=== PATIENT | female | born 1980 | race Caucasian/White ===

== ENCOUNTER 2018-03-30 15:14 | Emergency (ER) | payer SELFPAY ==
[2018-03-30] MEDS ORDERED: HYDROMORPHONE HCL 1 MG/ML INJ ONE (15:35)
[2018-03-30] MEDS ORDERED: NA CHLORIDE 0.9% 1,000 ML ONE (15:35)
[2018-03-30 16:18] LABS: Absolute Lymphocytes (CBC) 1.8 K/uL (0.7-4.9); Absolute Monocytes 0.8 K/uL (0.1-1.3); Absolute Neutrophil 10.2 K/uL (1.8-8.0); Basophils % 0.9 % (0-1.3); Eosinophils % 1.2 % (0-4.4); Hematocrit 37.4 % (36.0-45.0); Lymphocytes % 13.4 % (15.3-44.8); MCH 30.4 pg (27.0-35.0); MCV 90.7 fL (80-100); MPV 8.9 fL (7.6-11.3); Monocytes % 6.2 % (3.3-12.3); RBC Red Blood Cell Count 4.13 M/uL (3.86-4.86)
[2018-03-30 16:27] LABS: ALT/SGPT 45 U/L (12-78); AST/SGOT 53 U/L (15-37); Albumin 3.5 g/dL (3.4-5.0); Alkaline Phosphatase 436 U/L (45-117); BUN Blood Urea Nitrogen 11 mg/dL (7-18); Bicarbonate 26 mmol/L (21-32); Bilirubin Direct 0.8 mg/dL (0-0.2); Bilirubin Total 1.2 mg/dL (0.2-1.0); Glucose Level 111 mg/dL (74-106); Potassium 3.9 mmol/L (3.5-5.1); Protein, Total 8.3 g/dL (6.4-8.2); Sodium Level 141 mmol/L (136-145)
[2018-03-30] MEDS ORDERED: HYDROMORPHONE HCL 0.5 MG/0.5 ML INJ ONE ×2 (16:48→18:52)
--- NOTE | 2018-03-30 16:53 | RAD REPORT ---
EXAM DESCRIPTION: CT - Abdomen Pelvis W Contrast - 03/30/2018 4:29 pm CLINICAL HISTORY: Abdominal pain upper abdominal pain COMPARISON: February 2018 MRCP TECHNIQUE: Computed axial tomography of the abdomen pelvis was obtained. 100 cc Isovue-300 was admin istered intravenously. Oral contrast was not requested which limits evaluation of bowel. All CT scans are performed using dose optimization technique as appropriate and may include automated exposure control or mA/KV adjustment according to patient size. FINDINGS: A biliary stent has been placed. The caliber of the biliary tree has significantly diminis hed. Contrast is present within the gallbladder. Spleen, adrenals and kidneys appear unremarkable Mild to moderate peripancreatic stranding is seen. A pseudocyst is not visualized There is no evidence of diverticulitis. The appendix appears normal A tiny umbilical hernia is present IMPRESSION: Mild to moderate pancreatitis
[2018-03-30 17:10] LABS: Lipase > 30000 U/L (73-393)
[2018-03-30 17:11] LABS: Amylase Level > 1302 U/L (25-115)
--- NOTE | 2018-03-30 18:04 | ER ---
Nurse's Notes [facility] Name: Leni Foss Age: 37 yrs Sex: Female : 1980 Arrival Date: 03/30/2018 Time: 15:15 Bed 19 Private MD: Ayla Steen H Diagnosis: Acute pancreatitis, unspecified-s/p ERCP with biliary stent Presentation: 03/30 15:30 Presenting complaint: Patient states: has had severe upper abd pain that started today iw after ERPC by Dr. Garcia with biliary stent placement, pain is described as stabbing, 04/25. Transition of care: patient was not received from another setting of care. Onset of symptoms was March 30, 2018. Risk Assessment: Do you want to hurt yourself or someone else? Patient reports no desire to harm self or others. Initial Sepsis Screen: Does the patient meet any 2 criteria? No. Patient's initial sepsis screen is negative. Does the patient have a suspected source of infection? No. Patient's initial sepsis screen is negative. Care prior to arrival: None. 15:30 Method Of Arrival: Wheelchair iw 15:30 Acuity: ANABELL 3 iw Historical: - Allergies: 15:44 PENICILLINS; iw - PMHx: 18:37 Hyperlipidemia; em - PSHx: 18:37 gallbladder stents; Tubal ligation; em - Immunization history:: Adult Immunizations up to date. - Ebola Screening: : Patient negative for fever greater than or equal to 101.5 degrees Fahrenheit, and additional compatible Ebola Virus Disease symptoms Patient denies exposure to infectious person Patient denies travel to an Ebola-affected area in the 21 days before illness onset No symptoms or risks identified at this time. - Social history:: Smoking status: Patient/guardian denies using tobacco. Screenin:45 Abuse screen: Denies threats or abuse. Denies injuries from another. Nutritional iw screening: No deficits noted. Tuberculosis screening: No symptoms or risk factors identified. Fall Risk None identified. Assessment: 15:45 General: Appears uncomfortable, Behavior is cooperative, crying. Pain: Complains of em pain in epigastric area Pain currently is 10 out of 10 on a pain scale. Neuro: Level of Consciousness is awake, alert, obeys commands, Oriented to person, place, time, situation. Cardiovascular: Patient's skin is warm and dry. Respiratory: Airway is patent Respiratory effort is even, unlabored, Respiratory pattern is regular, symmetrical. GI: Abdomen is round non-distended, Bowel sounds present X 4 quads. Abd is soft X 4 quads Abdomen is tender to palpation in right upper quadrant and left upper quadrant Patient currently denies nausea, vomiting. : No signs and/or symptoms were reported regarding the genitourinary system. EENT: No signs and/or symptoms were reported regarding the EENT system. Derm: Skin is intact, Skin is pink, warm \T\ dry. Musculoskeletal: Range of motion: intact in all extremities. 16:27 Reassessment: I agree with above assessment by Jorge Luis Monae LVN. iw 16:45 Reassessment: Patient appears in no apparent distress at this time. Patient and/or em family updated on plan of care and expected duration. Pain level reassessed. Patient is alert, oriented x 3, equal unlabored respirations, skin warm/dry/pink. 18:02 Reassessment: Patient appears in no apparent distress at this time. Patient and/or em family updated on plan of care and expected duration. Pain level reassessed. Patient is alert, oriented x 3, equal unlabored respirations, skin warm/dry/pink. rates pain 4/10 Patient states feeling better. 18:30 Reassessment: pt in pain and vomiting, provider notified, new medications received. em 18:40 Reassessment: Patient appears in no apparent distress at this time. report called to chago Frazier RN at [facility]. 19:24 Reassessment: Patient appears in no apparent distress at this time. Patient and/or em family updated on plan of care and expected duration. Pain level reassessed. Patient is alert, oriented x 3, equal unlabored respirations, skin warm/dry/pink. report given to EMS. Vital Signs: 15:36 BP 101 / 59; Pulse 63; Resp 16; Temp 98.7(O); Pulse Ox 100% on R/A; dh3 16:50 BP 142 / 73; Pulse 81; Resp 16; Pulse Ox 95% on R/A; Pain 10/10; em 17:28 BP 121 / 67; Pulse 72; Resp 16; Pulse Ox 95% on R/A; dh3 18:29 BP 123 / 67; Pulse 92; Resp 16; Temp 98.0; Pulse Ox 97% on R/A; Pain 4/10; em 19:23 BP 134 / 80; Pulse 74; Resp 18; Pulse Ox 99% on R/A; Pain 4/10; em ED Course: 15:15 Patient arrived in ED. mr 15:15 Ayla Steen DO is Private Physician. mr 15:21 Chika Prajapati FNP-C [facility]. snw 15:21 Marcial Love MD is Attending Physician. snw 15:26 Jorge Luis Monae LVN is Primary Nurse. em 15:27 Missed attempt(s): 20 gauge in left forearm. Bleeding controlled, band aid applied, iw catheter tip intact. 15:30 Inserted saline lock: 20 gauge in left antecubital area, using aseptic technique. Blood iw collected. 15:43 Triage completed. iw 15:45 No provider procedures requiring assistance completed. iw 15:45 Patient has correct armband on for positive identification. Bed in low position. Call iw light in reach. Adult w/ patient. 16:29 CT Abd/Pelvis - W/Contrast In Process Unspecified. EDMS 19:00 Inserted saline lock: 20 gauge in right antecubital area, using aseptic technique. em 19:00 IV discontinued, intact, bleeding controlled, No redness/swelling at site. Pressure em dressing applied, pt IV infiltrated. 19:18 Arm band placed on. em 19:19 Patient transferred, IV remains in place. em Administered Medications: 15:46 Drug: NS 0.9% 1000 ml Route: IV; Rate: 125 ml/hr; Site: left antecubital; iw 19:22 Follow up: IV Status: Infusion continued upon transfer; IV Intake: 300ml em 15:46 Drug: Dilaudid 1 mg Route: IVP; Site: left antecubital; iw 16:00 Follow up: Response: No adverse reaction; Pain is decreased em 16:49 Drug: Dilaudid 0.5 mg Route: IVP; Site: left antecubital; em 17:10 Follow up: Response: No adverse reaction; Pain is decreased em 19:11 Drug: Dilaudid 0.5 mg Route: IVP; Site: right antecubital; em 19:22 Follow up: Response: No adverse reaction; Pain is decreased em 19:12 Drug: Phenergan 12.5 mg Route: IVP; Site: right antecubital; iw 19:22 Follow up: Response: No adverse reaction; Nausea is decreased em Intake: 19:22 IV: 300ml; Total: 300ml. em Outcome: 18:03 ER care complete, transfer ordered by MD. fernández 19:19 Transferred by ground EMS to [facility], [facility], Transfer form completed. em X-rays sent w/ patient. 19:19 Condition: good 19:19 Instructed on the need for transfer, Demonstrated understanding of instructions. 19:24 Patient left the ED. em Signatures: Dispatcher [employer] EDMS Chika Prajapati, PRINCIPAL LIBRARIAN-C PRINCIPAL LIBRARIAN-Pearl Townsendoz, Jorge Luis, CARBON GRINDER CARBON GRINDER em Deisy Moscoso, JANNETTE RN Lora Qiu 3 Corrections: (The following items were deleted from the chart) 19:22 18:30 Reassessment: pt in pain and vomiting, provider notified em em
--- NOTE | 2018-03-30 18:04 | EDPHYS ---
Physician Documentation [facility] Name: Leni Foss Age: 37 yrs Sex: Female : 1980 Arrival Date: 03/30/2018 Time: 15:15 Bed 19 Private MD: Ayla Steen H ED Physician Marcial Love HPI: 03/30 15:51 This 37 yrs old Female presents to ER via Wheelchair with complaints of snw Abdominal Pain. 15:51 The patient presents with abdominal pain in the epigastric area. Onset: The snw symptoms/episode began/occurred suddenly, today. The symptoms radiate to back. Associated signs and symptoms: Pertinent positives: nausea and vomiting. The symptoms are described as shooting, stabbing. Severity of pain: At its worst the pain was severe incapacitating in the emergency department the pain is unchanged. The patient has experienced a previous episode, but today's symptoms are worse. The patient has been recently seen by a physician: Dr. Garcia earlier today, pt had Common bile duct stent today per Dr. Garcia.. Historical: - Allergies: 15:44 PENICILLINS; iw - PMHx: 18:37 Hyperlipidemia; em - PSHx: 18:37 gallbladder stents; Tubal ligation; em - Immunization history:: Adult Immunizations up to date. - Ebola Screening: : Patient negative for fever greater than or equal to 101.5 degrees Fahrenheit, and additional compatible Ebola Virus Disease symptoms Patient denies exposure to infectious person Patient denies travel to an Ebola-affected area in the 21 days before illness onset No symptoms or risks identified at this time. - Social history:: Smoking status: Patient/guardian denies using tobacco. ROS: 15:50 Eyes: Negative for injury, pain, redness, and discharge, ENT: Negative for injury, snw pain, and discharge, Neck: Negative for injury, pain, and swelling, Cardiovascular: Negative for chest pain, palpitations, and edema, Respiratory: Negative for shortness of breath, cough, wheezing, and pleuritic chest pain, Back: Negative for injury and pain, : Negative for injury, bleeding, discharge, and swelling, MS/Extremity: Negative for injury and deformity, Skin: Negative for injury, rash, and discoloration, Neuro: Negative for headache, weakness, numbness, tingling, and seizure. 15:50 Constitutional: Positive for poor PO intake. 15:50 Abdomen/GI: Positive for abdominal pain, nausea and vomiting, abdominal cramps. Exam: 15:47 Head/Face: Normocephalic, atraumatic. Eyes: Pupils equal round and reactive to light, snw extra-ocular motions intact. Lids and lashes normal. Conjunctiva and sclera are non-icteric and not injected. Cornea within normal limits. Periorbital areas with no swelling, redness, or edema. ENT: Nares patent. No nasal discharge, no septal abnormalities noted. Tympanic membranes are normal and external auditory canals are clear. Oropharynx with no redness, swelling, or masses, exudates, or evidence of obstruction, uvula midline. Mucous membranes moist. Neck: Trachea midline, no thyromegaly or masses palpated, and no cervical lymphadenopathy. Supple, full range of motion without nuchal rigidity, or vertebral point tenderness. No Meningismus. Chest/axilla: Normal chest wall appearance and motion. Nontender with no deformity. No lesions are appreciated. 15:47 Respiratory: Lungs have equal breath sounds bilaterally, clear to auscultation and percussion. No rales, rhonchi or wheezes noted. No increased work of breathing, no retractions or nasal flaring. Back: No spinal tenderness. No costovertebral tenderness. Full range of motion. Skin: Warm, dry with normal turgor. Normal color with no rashes, no lesions, and no evidence of cellulitis. MS/ Extremity: Pulses equal, no cyanosis. Neurovascular intact. Full, normal range of motion. Neuro: Awake and alert, GCS 15, oriented to person, place, time, and situation. Cranial nerves II-XII grossly intact. Motor strength 5/5 in all extremities. Sensory grossly intact. Cerebellar exam normal. Normal gait. Psych: Awake, alert, with orientation to person, place and time. Behavior, mood, and affect are within normal limits. 15:47 Constitutional: The patient appears alert, anxious, obese, in obvious pain, restless. 15:47 Cardiovascular: Rate: tachycardic. 15:47 Abdomen/GI: Inspection: obese Palpation: moderate abdominal tenderness, in the epigastric area. Vital Signs: 15:36 BP 101 / 59; Pulse 63; Resp 16; Temp 98.7(O); Pulse Ox 100% on R/A; dh3 16:50 BP 142 / 73; Pulse 81; Resp 16; Pulse Ox 95% on R/A; Pain 10/10; em 17:28 BP 121 / 67; Pulse 72; Resp 16; Pulse Ox 95% on R/A; dh3 18:29 BP 123 / 67; Pulse 92; Resp 16; Temp 98.0; Pulse Ox 97% on R/A; Pain 4/10; em 19:23 BP 134 / 80; Pulse 74; Resp 18; Pulse Ox 99% on R/A; Pain 4/10; em MDM: 15:22 Patient medically screened. snw 18:04 Data reviewed: vital signs, nurses notes. Data interpreted: Pulse oximetry: on room air snw is 95 %. Interpretation: normal. Counseling: I had a detailed discussion with the patient and/or guardian regarding: the historical points, exam findings, and any diagnostic results supporting the discharge/admit diagnosis, lab results, radiology results, the need to transfer to another facility, for higher level of care, [facility] does not immediately have the required specialist. 03/30 15:27 Order name: Amylase, Serum; Complete Time: 17:14 snw 03/30 15:27 Order name: Basic Metabolic Panel; Complete Time: 17:14 snw 03/30 15:27 Order name: CBC with Diff; Complete Time: 16:20 snw 03/30 15:27 Order name: Creatinine for Radiology; Complete Time: 16:53 snw 03/30 15:27 Order name: Hepatic Function; Complete Time: 17:14 snw 03/30 15:27 Order name: Lipase; Complete Time: 17:14 snw 03/30 15:27 Order name: IV Saline Lock; Complete Time: 15:45 snw 03/30 15:27 Order name: CT Abd/Pelvis - W/Contrast; Complete Time: 16:54 snw 03/30 15:27 Order name: Labs collected and sent; Complete Time: 15:45 snw 03/30 15:27 Order name: NPO; Complete Time: 15:44 snw Administered Medications: 15:46 Drug: NS 0.9% 1000 ml Route: IV; Rate: 125 ml/hr; Site: left antecubital; iw 19:22 Follow up: IV Status: Infusion continued upon transfer; IV Intake: 300ml em 15:46 Drug: Dilaudid 1 mg Route: IVP; Site: left antecubital; iw 16:00 Follow up: Response: No adverse reaction; Pain is decreased em 16:49 Drug: Dilaudid 0.5 mg Route: IVP; Site: left antecubital; em 17:10 Follow up: Response: No adverse reaction; Pain is decreased em 19:11 Drug: Dilaudid 0.5 mg Route: IVP; Site: right antecubital; em 19:22 Follow up: Response: No adverse reaction; Pain is decreased em 19:12 Drug: Phenergan 12.5 mg Route: IVP; Site: right antecubital; iw 19:22 Follow up: Response: No adverse reaction; Nausea is decreased em Disposition: 03/30/18 18:03 Transfer ordered to [facility]. Diagnosis is Acute pancreatitis, unspecified - s/p ERCP with biliary stent. - Reason for transfer: Higher level of care. - Accepting physician is GI and Hospitalist for [facility]. - Condition is Stable. - Problem is new. - Symptoms are unchanged. Addendum: 04/02/2018 07:21 Co-signature as Attending Physician, Marcial Love MD I agree with the assessment and c rose plan of care. Signatures: Dispatcher [employer] Marcial Cummings MD MD cha Therrien, Shelly, LOGISTICS ACCOUNT MANAGER-C LOGISTICS ACCOUNT MANAGER-Csnw Jorge Luis Monae, FORMULA CHECKER FORMULA CHECKER em Deisy Moscoso, JANNETTE RN iw Corrections: (The following items were deleted from the chart) 03/30 19:24 18:03 03/30/2018 18:03 Transfer ordered to [facility]. Diagnosis is em Acute pancreatitis, unspecified - s/p ERCP with biliary stent. Reason for transfer: Higher level of care. Accepting physician is GI and Hospitalist for [facility]. Condition is Stable. Problem is new. Symptoms are unchanged. snw
[2018-03-30] MEDS ORDERED: PROMETHAZINE 25 MG/ML VIAL ONE (19:03)
== END 2018-03-30 19:24 | disposition short-term general hospital (02) ==
LOC: ER 15:14
DX: K85.90 Acute pancreatitis without necrosis or infection, unspecified (principal); Z98.890 Other specified postprocedural states; Z88.0 Allergy status to penicillin
CPT/HCPCS: 36415; 74177; 80048; 80076; 82150; 83690; 85025; 99285; J1170; J2550; J7030; Q9967

== ENCOUNTER 2022-07-09 13:17 | Emergency (ER) | payer OTHER ==
--- OUTSIDE RECORDS SUMMARY | 2022-07-09 13:39 | XMS REPORT | Continuity of Care Document ---
:[address] [facility] t Address [address] [place] [address] Care Team Providers Name Role Phone RONA JONES Primary Care Physician Unavailable ANKUSH CORTES Attending Clinician Unavailable Sharmila TREJO, Aaron Rogers Attending Clinician Ed Rashid MA Attending Clinician Unavailable Mounika BHATIA, Madie Price Attending Clinician Unavailable AARON DOLL Attending Clinician Unavailable Romel Alvarado MA Attending Clinician Unavailable Only, Adc Test Attending Clinician Unavailable Ryan Francois MD Attending Clinician RYAN FRANCOIS Attending Clinician Unavailable Doctor Unassigned, [place] [employer] Attending Clinician Unavailable LENNY LAZARO Attending Clinician Unavailable Cyndi Hutson MD Attending Clinician DINO SAVAGE Attending Clinician Unavailable ANKUSH CORTES Admitting Clinician Unavailable DINO SAVAGE Admitting Clinician Unavailable Payers Payer Name Policy Type Policy Number Effective Date Expiration Date S [id number] 2019 2019 00:00:00 SELECT CHOICE 00:00:00 BCBS PPO POS [id number] 2019 EPO CHOICE 00:00:00 Problems Condition Condition Condition Status Onset Resolution Last Treating Co mments Source Name Details Category Date Date Treatment Clinician Date Immunity Immunity Disease Active [facility] PSC PSC Disease Active [facility] (primary (primary [facility] sclerosing sclerosing 00:00: Me dical cholangiti cholangiti 00 Ce nter s) s) Hypokalemi Hypokalemi Disease Active [facility]01 [facility] Severe Severe Disease Active [facility] obesity obesity 04-01 [facility] with body with body 00:00: Medi stacy mass index mass index 00 Ce nter (BMI) of (BMI) of 35.0 to 35.0 to 39.9 with 39.9 with serious serious comorbidit comorbidit y y Pancreatit Pancreatit Disease Active [facility] is, acute is, acute 03-30 [facility] 00:00: Medical 00 Center Allergies, Adverse Reactions, Alerts Allergy Allergy Status Severity Reaction(s) Onset Inactive Treating Comm ents Source Name Type Date Date Clinician Penicill Drug Active Hives [facility] Allergy 03-30 [facility] 00:00: Medical 00 [place] Penicill Propensi Active Hives [facility] ins ty to 03-30 College adverse 00:00: of reaction 00 Medicin s to e drug PENICILL Allergy Active Med Hives [facility] INS 03-30 00:00: 00 Penicill Drug Active Hives [facility] Allergy 03-30 [facility] 00[facility]00: Medical 00 [place] NO KNOWN Drug Active Univers ALLERGIE Class ity of [facility] Social History Social Habit Start Date Stop Date Quantity Comments Source Exposure to Not sure [facility] SARS-CoV-2 [facility] (event[facility] Alcohol intake 2020-05-21 2020-05-21 Ex-drinker [facility] Tobacco use and 2018-03-30 2018-03-[address] [facility] exposure 00:00:00 00:00:00 Medical [place] Sex Assigned At [address] [address] [facility] 00:00:00 00:00:00 Medical Center Smoking Status Start Date Stop Date Source Unknown if ever smoked [facility] [place] Never smoker [facility] o f Medicine Medications Ordered Filled Start Stop Current Ordering Indication Dosage Frequency Signature Comments Components Source Medication Medication Date Date Medication? Clinician (SIG) Name Name hydrOXYzine Yes Cancer 50mg Take [address] (ATARAX) 50 2-19 screening tablet (50 [facility] MG tablet 00:00: mg total) Med ical 00 by mouth Center every 8 (eight) hours as needed for Itching. hydrOXYzine Yes Cancer 50mg Take [address] (ATARAX) 50 2-19 screening tablet (50 [facility] MG tablet 00:00: mg total) Med ical 00 by mouth Center every 8 (eight) hours as needed for Itching. hydrOXYzine Yes Cancer 50mg Take [address] (ATARAX) 50 2-19 screening tablet (50 [facility] MG tablet 00:00: mg total) Med ical 00 by mouth Center every 8 (eight) hours as needed for Itching. hydrOXYzine 2020- No Cancer 50mg Q.5D Take [address] (ATARAX) 25 -03 18- screening tablets [facility] tablet 00:00: 00:00 (50 mg Medic al 00 :00 total) by Center mouth 2 (two) times daily. hydrOXYzine 2020- No Cancer 50mg Q.5D Take [address] (ATARAX) 25 -03 18-19 screening tablets [facility] MG tablet 00:00: 00:00 (50 mg Medic al 00 :00 total) by Center mouth 2 (two) times daily. sertraline 2019-07- No Itching TAKE [address] (ZOLOFT) 50 02-18 TABLET(50 [facility] MG tablet 00:00: 00:00 MG) BY Medic al 00 :00 MOUTH Center DAILY sertraline 2019-07- No Itching TAKE [address] (ZOLOFT) 50 2-29 02-18 TABLET(50 [facility]ia kes MG tablet 00:00: 00:00 MG) BY Medic al 00 :00 MOUTH Center DAILY doxepin Yes [id number] 20mg Take 2 Will kaushik (SINEQUAN) 5-07 Caps by Colleg e 10 MG 00:00: mouth of capsule 00 nightly. Medicin Take 1cab e qhs x 1-2wks. Go up to 2cabs qhs as tolerated Ursodiol Yes TK 1 T PO Bayl or 500 MG TABS 4-07 BID College 00:00: of 00 Medicin e hydrOXYzine Yes TK 1 T PO B aylor (ATARAX) 50 2-21 TID College MG tablet 00:00: of 00 Medicin e Vital Signs Vital Name Observation Time Observation Value Comments Source HEIGHT 2020-05-20 10:15:00 157.5 cm WEIGHT 2020-05-20 10:15:00 84.823 kg HEIGHT 2020-05-19 12:08:00 157.5 cm WEIGHT 2020-05-19 12:08:00 86.183 kg HEIGHT 2020-05-20 10:15:00 157.5 cm WEIGHT 2020-05-20 10:15:00 84.823 kg HEIGHT 2020-05-19 12:08:00 157.5 cm WEIGHT 2020-05-19 12:08:00 86.183 kg HEIGHT 2019-12-10 00:00:00 157.5 cm WEIGHT 2019-12-10 00:00:00 92.987 kg Body height 2019-11-21 17:13:00 157.5 cm [facility] Body weight 2019-11-21 17:13:00 [facility]719 [facility] BMI 2019-11-21 17:13:00 36.58 kg/m2 [facility] Body height 2019-11-21 17:13:00 157.5 cm [facility] Body weight 2019-11-21 17:13:00 90.719 kg [facility] BMI 2019-11-21 17:13:00 36.58 kg/m2 [facility] Procedures Procedure Date / Time Performing Clinician Source Performed BASIC METABOLIC PANEL 2020-11-11 13:29:00 Aaron Doll [facility] () Center HEPATIC FUNCTION PANEL 2020-11-11 13:29:00 Aaron Doll [facility] CBC W/PLT COUNT & AUTO 2020-11-11 13:29:00 [facility] PROTHROMBIN TIME/INR 2020-11-11 13:29:[address] [facility] Center ASSIGNMENT OF BENEFITS 2020-05-14 20:18:46 Doctor Unassigned, [facility] Plan of Care Planned Activity Planned Date Details Comments Source Future Scheduled 2022-03-[address] [facility] Test 00:00:00 (#1) [code = [facility] Center INFLUENZA VACCINE (#1)] Future Scheduled 2021-07-[address] [facility] Test 00:00:00 (12+) [code = [facility] Center DEPRESSION SCREENING (12+)] Future Scheduled 2021-05-[address] [facility] Scre[facility] (12+) [code = Tobacco Cessation Counseling and Screening (12+)] Future Scheduled 2021-03-[address] [facility] Test 00:00:00 (#1) [code = [facility] INFLUENZA VACCINE (#1)] Future Scheduled 2021-03-[address] [facility] Test 00:00:00 (#1) [code = [facility] INFLUENZA VACCINE (#1)] Future Scheduled 2020-07-[address] [facility] Test 00:00:00 (12+) [code = [facility] Center DEPRESSION SCREENING (12+)] Future Scheduled 2020-07-[address] [facility] Test 00:00:00 (12+) [code = [facility] DEPRESSION SCREENING (12+)] Future Scheduled [address] Test 00:00:00 malignant neoplasm Medical C enter of cervix (procedure) [code = 465334590] Future Scheduled [address] [facility] Test 00:00:00 malignant neoplasm Medical C enter of cervix (procedure) [code = 566977489] Future Scheduled [address] [facility] Test 00:00:00 malignant neoplasm Medical C enter of cervix (procedure) [code = 707946475] Future Scheduled [address] [facility] Test 00:00:00 (procedure) [code = [facility] [id number]] Future Scheduled [address] Test 00:00:00 (procedure) [code = [facility] [id number]] Future Scheduled [address] [facility] Test 00:00:00 (procedure) [code = [facility] Center [id number]] Future Scheduled 1999 DTAP/TDAP/TD [facility] 00:[facility]:00 VACCINES (1 - Tdap) Medical Center [code = DTAP/TDAP/TD VACCINES (1 - Tdap)] Future Scheduled 1999 DTAP/TDAP/TD [facility] Test 00:[facility]:00 VACCINES (1 - Tdap) Medical Center [code = DTAP/TDAP/TD VACCINES (1 - Tdap)] Future Scheduled 1999 DTAP/TDAP/TD [facility] Test 00:00:00 VACCINES (1 - Tdap) [facility] Center [code = DTAP/TDAP/TD VACCINES (1 - Tdap)] Future Scheduled 1992 COVID-19 VACCINE (1) [facility] Test 00:00:00 [code = COVID-[address] VACCINE (1)] Future Scheduled 1992 COVID-19 VACCINE (1) [facility] Test 00:00:00 [code = COVID-[address] VACCINE (1)] Future Scheduled 1980 COVID-[address] [facility] Test 00:00:00 (#1) [code = Medical Center COVID-19 VACCINE (#1)] Future Scheduled TETANUS SHOT (ADULT) [facility] of Test [code = TETANUS SHOT Medicin e (ADULT)] Future Scheduled BMI FOLLOW UP PLAN [facility] of Test [code = BMI FOLLOW Medicine UP PLAN] Future Scheduled HIV SCREENING [code [facility] of Test = HIV SCREENING] Medicine Future Scheduled [facility] Test SCREENING 3 YEAR Medicine FOLLOW UP [code = CERVICAL CANCER SCREENING 3 YEAR FOLLOW UP] Future Scheduled FLU VACCINE > 6 [facility] C ollege of Test MONTHS [code = FLU Medicine VACCINE > 6 MONTHS] Encounters Start End Encounter Admission Attending Care Care Encounter Source Date/Time Date/Time Type Type Clinicians Facility Department ID 2021-04-21 Outpatient HENRY CORTES Surgery [id number] [facility] 13:06:57 [facility] 2022-07-01 2022-07-01 CONTRERAS Cohn [id number] 00:00:00 00:00:00 Only [facility] 2022-06-29 2022-06-29 Abstract Rachid [facility] [id number] 00:00:00 00:00:00 [facility] 2022-06-20 2022-06-20 Abstract Leskwan [facility] [id number] 00:00:00 00:00:00 [facility] 2022-05-17 2022-05-17 [id number] 00:00[facility]00 00:00:00 [facility] 2022-05-16 2022-05-16 [facility] [id number] 00:00:00 00:00:00 [facility] 2022-05-11 2022-05-11 [facility] [id number] 00:00:00 00:00:00 [facility] 2022-04-06 2022-04-06 Outpatient SHARMILA, [facility] SLE [id number] SLE 00:00:00 00:00:00 [facility] 2022-04-06 2022-04-06 Laura Alvarado [facility] [id number] [facility] 2022-03-03 2022-03-03 Luz Marina Doll [facility] [id number] 00:00:00 00:00:00 Only [facility] 2020-10-02 2020-10-02 Sukhdeep Doll [facility] [id number] 00:00:00 00:00:00 [facility] 2020-09-10 2020-09-10 Sukhdeep Doll [facility] [id number] 00:00:00 00:00:00 [facility] 2020-09-04 2020-09-04 Luz Marina Doll [facility] [id number] 00:00:00 00:00:00 Only [facility] 2020-09-03 2020-09-03 Luz Marina Doll [facility] [id number] 00:00:00 00:00:00 Only [facility] 2020-09-03 2020-09-03 Luz Marina Doll [facility] [id number] 00:00:00 00:00:00 Only [facility] 2020-08-25 2020-08-25 Luz Marina Doll [facility] [id number] 00:00:00 00:00:00 Only [facility] 2020-05-19 2020-05-19 Laboratory Only, Adc Test [facility] 1.2.840. 114 [id number] Univers 13:19:38 13:34:38 Only Ryan Francois [id number] [facility] 4.2.7.2.686 [facility] [phone] [address] 2020-05-19 2020-05-19 Laboratory Only, [facility] [id number] 13:19:38 13:34:38 Only Test Roberto Carlos [id number] [place] [address] [place] [address] [phone] [facility] 2020-05-19 2020-05-19 Outpatient EL SLE [facility] [id number] [facility] 00:00:00 00:00:00 2020-05-14 2020-05-14 Laboratory Only, Adc Test [facility] 1.2.840. 114 [id number] Univers 15:20:34 15:35:34 Only Ryan Francois [id number] [facility] 4.[address] [place] [id number] 2020-05-14 2020-05-14 Outpatient R ALESSANDRO [facility] [id number] Univers 15:15:00 15:15:00 RYAN patel [facility] 2020-05-14 2020-05-14 Orders Doctor ESPINOZA 1.2.840.114 [id number] 00:00:00 00:00:00 Only Unassigned, JEYSON [id number] ity of [place] [employer] [facility] 4.2.7.2.686 Octaviano as [phone] [facility] 009 Branch 2020-03-26 2020-03-26 Outpatient FRIDA DOLL [facility] [id number] [facility] 00:00:00 00:00:00 [facility] 2020-03-24 2020-03-24 Outpatient HENRY WALKER [facility] [id number] [facility] 00:00:00 00:00:00 [facility] 2019-12-10 2019-12-10 Outpatient FRIDA LAZARO [facility] [id number] [facility] 00:00:00 00:00:00 LENNY 2019-11-21 2019-11-21 Office Cyndi Hutson 1.2.840.114 [id number] [facility] 12:00:58 14:44:00 Visit Paula AMBULATOR [id number] College Y 0.2.7.2.686 of [id number] [facility] 300 e 2019-11-21 2019-11-21 Office Cyndi Hutson [facility] 1.2.840.114 [id number] 12:00:58 14:44:00 Visit Paula AMBULATOR [id number] Y 0.2.7.2.686 [id number] 2019-11-21 2019-11-21 Outpatient [facility] [id number] [facility] 00:00:00 00:00:00 [id number] 2019-10-10 2019-10-10 Outpatient [facility] [id number] [facility] 00:00:00 00:00:00 [id number] 2019-10-03 2019-10-03 Outpatient [facility] [id number] [facility] 00:00:00 00:00:00 [id number] 2019-10-02 2019-10-02 Outpatient [facility] [id number] [facility] 00:00:00 00:00:00 [id number] Results Test Description Test Time Test Comments Results Result Sour e Comments TISSUE EXAM 2020-05-21 Surgical Pathology 13:12:00 Report Case: [id number] Authorizing Provider: Ankush Cortes MD Collected: 05/20/2020 12:05 PM Ordering Location: [facility] Endoscopy Received: 05/20/2020 02:22 PM Services Pathologist: Maximo Lemus MD Specimen: Duct, Left Hepatic Duct Bx via spybite PART A LEFT MAIN HEPATIC DUCT, ENDOSCOPIC BIOPSY:BILIARY MUCOSA WITH ACUTE AND CHRONIC INFLAMMATION.NEGATIVE FOR DYSPLASIA OR INVASIVE CARCINOMA. Signing Pathologist Direct Phone Line: [phone] rashel signed by Maximo Lemus MD on 05/21/2020 at 1:12 [id number] and postop diagnosis: Abnormal MRI of abdomen, bile duct abnormalityA. ductReceived in formalin labeled with the patient's name, accession number and "duct" with the additional description "left hepatic duct Bx via spybite" are multiple minute pieces of white-mcnamara mucosal-covered soft tissue measuring 0.7 x 0.2 x 0.2 cm. The specimen is submitted in toto following filtration in cassette A1. ADINA/plPERFORMED. [facility], Department of Pathology, [address] [place] [address], [facility], [facility] of [facility], [address] [place] [address], [facility], [facility] of Pathology, [address] [place] [address], [place], ERCP 2020-05-20 DR LAZARO 12:18:00 Reason for exam:->[facility] : 1980 Sex: F Nc uoroscopic unit utilized for a procedure performed in the OR. No interpretation was requested. Refer to the operative report for findings. Refer to PACS for patient radiation dose information. MR, ABDOMEN, WITH 2020-03-26 With MRCP FINAL REPORT PATIENT 15:42:00 ID: [id number] TECHNIQUE: MRI of the abdomen and MRCP WITHOUT and WITH intravenous contrast. 3-D volume reconstructions were obtained to evaluate the biliary ductal system. 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 COMPARISON: Abdomen MRI 10/10/2019. FINDINGS: LOWER THORAX: Unremarkable. LIVER: No cirrhosis or hepatic steatosis. No suspicious liver observation. Unchanged 0.4 cm T2 hyperintense observation in segment V with delayed centripetal enhancement, likely a hemangioma.BILIARY: Cholelithiasis. Unchanged focal gallbladder adenomyomatosis at the fundus. Apparent increase in wall thickening/enhancemen t of the left hepatic duct. Otherwise, no significant change in beaded appearance of intrahepatic bile ducts, particularly the central intrahepatic bile ducts, with no significant change in mild intrahepatic biliary ductal prominence. Common bile duct is normal in caliber with unchanged contour irregularity.SPLEEN: No splenomegaly.PANCREAS : No focal mass or ductal dilatation. ADRENALS: No adrenal nodule.KIDNEYS/URETER S: No hydronephrosis or mass. PERITONEUM/RETROPERIT ONEUM: No free fluid.LYMPH NODES: Unchanged mildly prominent 1.2 cm periportal lymph node, likely reactive.VESSELS: Unremarkable. GI TRACT: No distention or wall thickening. BONES AND SOFT TISSUES: Unremarkable. IMPRESSION:Apparent increase in wall thickening/enhancemen t of the left hepatic duct. Otherwise, unchanged beaded appearance and mild prominence of the intrahepatic bile ducts and unchanged contour irregularity of the common bile duct, consistent with reported primary sclerosing cholangitis. No suspicious liver observation. Cholelithiasis. RECOMMENDATION:Left hepatic duct findings may be further evaluated with ERCP. Signed: Ralf Urbano MDReport Verified Date/Time: 03/26/2020 15:42:42 Reading Location: [address] Radiology Reading Room , ABDOMEN, WITH 2019-10-10 MRCPMRCP FINAL REPORT PATIENT 15:53:00 ID: [id number] TECHNIQUE: MRI of the abdomen WITHOUT and WITH intravenous contrast. INDICATION: PSC elevated liver enzymes including Alkaline phosphatase. COMPARISON: Outside facility MRI from 03/09/2018. FINDINGS: LOWER THORAX: Unremarkable. LIVER: No hepatic signal abnormality. There is a focal area of hypoenhancement in segment V which measures 0.4 cm and gradually fills on delayed phase imaging. This is best seen on portal venous phase image 89. BILIARY: Cystic changes in the gallbladder fundus are consistent with adenomyomatosis and similar to the MRI from 03/09/2018. There are several tiny layering stones. No gallbladder distention or wall thickening. There is mild right and left intrahepatic ductal dilation due to strictures at the proximal intrahepatic bile ducts. The distal common bile duct is diffusely decreased in caliber with some irregularity, most consistent with fibrotic changes. SPLEEN: No splenomegaly. The spleen measures 12.5 cm in length.PANCREAS: No focal masses or ductal dilatation. ADRENALS: No adrenal nodules.KIDNEYS/URETE RS: No hydronephrosis or solid mass lesions. PERITONEUM/RETROPERIT ONEUM: No free fluid.LYMPH NODES: No lymphadenopathy.VESSE LS: Conventional hepatic arterial anatomy. The main portal vein is patent and measures 1.2 cm in diameter. GI TRACT: No distention or wall thickening. BONES AND SOFT TISSUES: Unremarkable. 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 In addition, the distal common bile duct is decreased in caliber with some irregularity, consistent with fibrotic change. 2.An area of hypoenhancement in segment V which progressively fills with contrast is nonspecific, and a follow-up MRI is recommended in six months. 3.Cholelithiasis without acute cholecystitis. Signed: Harris Daniel MDReport Verified Date/Time: 10/10/2019 15:53:13 Reading Location: [address] Radiology Reading Room -CREATININE 2019-10-10 13:32:00 Test Item Value Reference Range Interpretation Comme nts POC-CREATININE (BEAKER) 0.7 mg/dL 0.6-1.3 : TE STED AT [facility] [address] (test code = 1859) GAYE Romero X, [address]: Key Account Executive/Techni bettina ID = [id number] for Agnela Velez POC-EGFR (BEAKER) (test 93 mL/min/1.73M2 code = 1860) ANTI-MITOCHONDRIAL AB, REFLEX TO [id number] 08:05:00 Test Item Value Reference Range Interpretation Comments SCAN RESULT (test code = 6404759) ANTI-NUCLEAR ANTIBODY (KAYLEEN)2019-10-03 10:00:00 Test Item Value Reference Range Interpretation Comments ANTI-NUCLEAR ANTIBODY (KAYLEEN) (BEAKER) Positive Negative A (test code = 418) Test performed by IFA method.KAYLEEN TITER AND [id number] 10:00:00 Test Item Value Reference Range Interpretation Comments KAYLEEN TITER (BEAKER) (test code = >=:2560 1541) KAYLEEN PATTERN (BEAKER) (test code = Speckled 1781) IMMUNOGLOBULIN G (IGG)2019-10-02 17:01:00 Test Item Value Reference Range Interpretation Comments IMMUNOGLOBULIN G (IGG) (BEAKER) 1670 mg/dL 540-1,822 (test code = 427) Key Account Executive ID - BSIMMUNOGLOBULIN M (IGM)2019-10-02 17:01:00 Test Item Value Reference Range Interpretation Comments IMMUNOGLOBULIN M (IGM) (BEAKER) 133 mg/dL 22-293 (test code = 638) Key Account Executive ID - BSHEPATIC FUNCTION [id number] 14:38:00 Test Item Value Reference Range Interpretation Comments TOTAL PROTEIN (BEAKER) (test code = 8.2 gm/dL 6.0-8.3 770) ALBUMIN (BEAKER) (test code = 1145) 4.1 g/dL 3.5-5.0 BILIRUBIN TOTAL (BEAKER) (test code 0.8 mg/dL 0.2-1.2 = 377) BILIRUBIN DIRECT (BEAKER) (test 0.5 mg/dL 0.1-0.5 code = 706) ALKALINE PHOSPHATASE (BEAKER) (test 376 U/L 40-150 H code = 346) AST (SGOT) (BEAKER) (test code = 36 U/L 5-34 H 353) ALT (SGPT) (BEAKER) (test code = 42 U/L 6-55 347) Key Account Executive ID - BSGAMMA GLUTAMYL TRANSFERASE (GGT)2019-10-02 14:38:00 Test Item Value Reference Range Interpretation Comments GAMMA GLUTAMYL TRANSFERASE (BEAKER) 141 U/L 9-64 H (test code = 364) Key Account Executive ID - BSBASIC METABOLIC [id number] 13:35:00 Test Item Value Reference Range Interpretation Comments SODIUM (BEAKER) 139 meq/L 136-145 (test code = 381) POTASSIUM (BEAKER) 2.8 meq/L 3.5-5.1 L (test code = 379) CHLORIDE (BEAKER) 103 meq/L 98-107 (test code = 382) CO2 (BEAKER) (test 27 meq/L 22-29 code = 355) BLOOD UREA NITROGEN 6 mg/dL 7-21 L (BEAKER) (test code = 354) CREATININE (BEAKER) 0.58 mg/dL 0.57-1.25 (test code = 358) GLUCOSE RANDOM 62 mg/dL 70-105 L (BEAKER) (test code = 652) CALCIUM (BEAKER) 8.9 mg/dL 8.4-10.2 (test code = 697) EGFR (BEAKER) (test 117 mL/min/1.73 ESTIM ATED GFR IS code = 1092) sq m NOT ACCURATE CREATININE CLEARANCE IN PREDICTING GLOMERULAR FILTRATION RATE . ESTIMATED GFR I S NOT APPLICABLE FOR DIALYSIS PATIEN TS. CBC W/PLT COUNT & AUTO [id number] 13:29:00 Test Item Value Reference Range Interpretation Comments WHITE BLOOD CELL COUNT (BEAKER) 10.9 K/ L 3.5-10.5 H (test code = 775) RED BLOOD CELL COUNT (BEAKER) 3.29 M/ L 3.93-5.22 L (test code = 761) HEMOGLOBIN (BEAKER) (test code = 9.8 GM/DL 11.2-15.7 L 410) HEMATOCRIT (BEAKER) (test code = 30.5 % 34.1-44.9 L 411) MEAN CORPUSCULAR VOLUME (BEAKER) 92.7 fL 79.4-94.8 (test code = 753) MEAN CORPUSCULAR HEMOGLOBIN 29.8 pg 25.6-32.2 (BEAKER) (test code = 751) MEAN CORPUSCULAR HEMOGLOBIN CONC 32.1 GM/DL 32.2-35.5 L (BEAKER) (test code = 752) RED CELL DISTRIBUTION WIDTH 12.8 % 11.7-14.4 (BEAKER) (test code = 412) PLATELET COUNT (BEAKER) (test 358 K/CU MM 150-450 code = 756) MEAN PLATELET VOLUME (BEAKER) 9.5 fL 9.4-12.3 (test code = 754) NUCLEATED RED BLOOD CELLS 0 /100 WBC 0-0 (BEAKER) (test code = 413) NEUTROPHILS RELATIVE PERCENT 78 % (BEAKER) (test code = 429) LYMPHOCYTES RELATIVE PERCENT 13 % (BEAKER) (test code = 430) MONOCYTES RELATIVE PERCENT 5 % (BEAKER) (test code = 431) EOSINOPHILS RELATIVE PERCENT 2 % (BEAKER) (test code = 432) BASOPHILS RELATIVE PERCENT 1 % (BEAKER) (test code = 437) NEUTROPHILS ABSOLUTE COUNT 8.54 K/ L 1.56-6.13 H (BEAKER) (test code = 670) LYMPHOCYTES ABSOLUTE COUNT 1.45 K/ L 1.18-3.74 (BEAKER) (test code = 414) MONOCYTES ABSOLUTE COUNT (BEAKER) 0.57 K/ L 0.24-0.36 H (test code = 415) EOSINOPHILS ABSOLUTE COUNT 0.20 K/ L 0.04-0.36 (BEAKER) (test code = 416) BASOPHILS ABSOLUTE COUNT (BEAKER) 0.05 K/ L 0.01-0.08 (test code = 417) IMMATURE GRANULOCYTES-RELATIVE 1 % 0-1 PERCENT (BEAKER) (test code = 2801) TISSUE [id number] 09:15:00Surgical Pathology Report Case: [id number] Authorizing Provider: Ankush Cortes MD Collected: 04/03/2018 1525 Ordering Location: [address] Received: 04/04/2018 0845 Service Pathologist: Maximo Lemus MD Specimen: Common Bile Duct, spy bite PART A COMMON BILE DUCT, BIOPSY:GLANDULAR MUCOSA WITH ACUTE INFLAMMATION AND REACTIVE CHANGES.NEGATIVE FOR DYSPLASIA OR INVASIVE CARCINOMA. Signing Pathologist Direct Phone Line: [phone] signed by Maximo Lemus MD on 04/05/2018 at 9:15 [id number] obstruction Common bile duct SpyBite The specimen is received in a formalin-filled container labeled with the patient's information and labeled "common bile duct SpyBite biopsy" and consists of two 0.1 cm fragments of mcnamara-red tissue submitted in A1. CG/ew PERF ORMED.BLOOD [id number] 06:00:00 Test Item Value Reference Range Interpretation Comments CULTURE (BEAKER) (test No growth in 5 days code = 1095) BLOOD [id number] 06:00:00 Test Item Value Reference Range Interpretation Comments CULTURE (BEAKER) (test No growth in 5 days code = 1095) HEPATITIS B SURFACE [id number] 13:11:00 Test Item Value Reference Range Interpretation Comments HEPATITIS B SURFACE ANTIBODY < mIU/mL <8.0 (BEAKER) (test code = 647) HEPATITIS A ANTIBODY, [id number] 13:10:00 Test Item Value Reference Range Interpretation Comments HEPATITIS A IGG ANTIBODY (BEAKER) Reactive Nonreactive A (test code = 2797) FL, [id number] 17:27:00Reason for exam:->pancreatitisFINAL REPORT ERCP 9 views intraoperative 04/03/2018 5:24 PM CLINICAL HISTORY: Ins trument localization COMPARISON: None available IMPRESSION: Please correlate imaging report findingswith the procedure note prepared by Dr. Cortes, as an intra-procedure imaging consultation was not requested. Reported fluoroscopy time: 452.4 seconds. Signed: Ba Waite Verified Date/Time: 04/03/2018 17:27:01 Reading [facility] Reading Room LIPASE 2018-04-03 11:49:00 Test Item Value Reference Range Interpretation Comments LIPASE (BEAKER) (test code = 749) 46 U/L 8-78 CBC W/PLT COUNT & AUTO [id number] 10:42:00 Test Item Value Reference Range Interpretation Comments WHITE BLOOD CELL COUNT (BEAKER) 12.9 K/ L 3.5-10.5 H (test code = 775) RED BLOOD CELL COUNT (BEAKER) 3.27 M/ L 3.93-5.22 L (test code = 761) HEMOGLOBIN (BEAKER) (test code = 9.8 GM/DL 11.2-15.7 L 410) HEMATOCRIT (BEAKER) (test code = 30.6 % 34.1-44.9 L 411) MEAN CORPUSCULAR VOLUME (BEAKER) 93.6 fL 79.4-94.8 (test code = 753) MEAN CORPUSCULAR HEMOGLOBIN 30.0 pg 25.6-32.2 (BEAKER) (test code = 751) MEAN CORPUSCULAR HEMOGLOBIN CONC 32.0 GM/DL 32.2-35.5 L (BEAKER) (test code = 752) RED CELL DISTRIBUTION WIDTH 12.6 % 11.7-14.4 (BEAKER) (test code = 412) PLATELET COUNT (BEAKER) (test 300 K/CU MM 150-450 code = 756) MEAN PLATELET VOLUME (BEAKER) 9.9 fL 9.4-12.3 (test code = 754) NUCLEATED RED BLOOD CELLS 0 /100 WBC 0-0 (BEAKER) (test code = 413) NEUTROPHILS RELATIVE PERCENT 81 % (BEAKER) (test code = 429) LYMPHOCYTES RELATIVE PERCENT 10 % (BEAKER) (test code = 430) MONOCYTES RELATIVE PERCENT 7 % (BEAKER) (test code = 431) EOSINOPHILS RELATIVE PERCENT 2 % (BEAKER) (test code = 432) BASOPHILS RELATIVE PERCENT 1 % (BEAKER) (test code = 437) NEUTROPHILS ABSOLUTE COUNT 10.40 K/ L 1.56-6.13 H (BEAKER) (test code = 670) LYMPHOCYTES ABSOLUTE COUNT 1.24 K/ L 1.18-3.74 (BEAKER) (test code = 414) MONOCYTES ABSOLUTE COUNT (BEAKER) 0.90 K/ L 0.24-0.36 H (test code = 415) EOSINOPHILS ABSOLUTE COUNT 0.23 K/ L 0.04-0.36 (BEAKER) (test code = 416) BASOPHILS ABSOLUTE COUNT (BEAKER) 0.06 K/ L 0.01-0.08 (test code = 417) IMMATURE GRANULOCYTES-RELATIVE 1 % 0-1 PERCENT (BEAKER) (test code = 2801) HEPATIC FUNCTION [id number] 06:16:00 Test Item Value Reference Range Interpretation Comments TOTAL PROTEIN (BEAKER) (test code = 6.0 gm/dL 6.0-8.3 770) ALBUMIN (BEAKER) (test code = 1145) 2.8 g/dL 3.5-5.0 L BILIRUBIN TOTAL (BEAKER) (test code 0.9 mg/dL 0.2-1.2 = 377) BILIRUBIN DIRECT (BEAKER) (test 0.5 mg/dL 0.1-0.5 code = 706) ALKALINE PHOSPHATASE (BEAKER) (test 278 U/L 40-150 H code = 346) AST (SGOT) (BEAKER) (test code = 25 U/L 5-34 353) ALT (SGPT) (BEAKER) (test code = 16 U/L 6-55 347) ANTI-NUCLEAR ANTIBODY (KAYLEEN)2018-04-02 10:03:00 Test Item Value Reference Range Interpretation Comments ANTI-NUCLEAR ANTIBODY (KAYLEEN) (BEAKER) Positive Negative A (test code = 418) Test performed by IFA method.KAYLEEN TITER AND [id number] 10:03:00 Test Item Value Reference Range Interpretation Comments KAYLEEN TITER (BEAKER) (test code = :40 1541) KAYLEEN PATTERN (BEAKER) (test code = Speckled 1781) [id number] 05:55:00 Test Item Value Reference Range Interpretation Comments MAGNESIUM (BEAKER) (test code = 1.5 mg/dL 1.6-2.6 L 627) BASIC METABOLIC [id number] 05:55:00 Test Item Value Reference Range Interpretation Comments SODIUM (BEAKER) 136 meq/L 136-145 (test code = 381) POTASSIUM (BEAKER) 3.4 meq/L 3.5-5.1 L (test code = 379) CHLORIDE (BEAKER) 103 meq/L 98-107 (test code = 382) CO2 (BEAKER) (test 25 meq/L 22-29 code = 355) BLOOD UREA NITROGEN 10 mg/dL 7-21 (BEAKER) (test code = 354) CREATININE (BEAKER) 0.58 mg/dL 0.57-1.25 (test code = 358) GLUCOSE RANDOM 61 mg/dL 70-105 L (BEAKER) (test code = 652) CALCIUM (BEAKER) 8.7 mg/dL 8.4-10.2 (test code = 697) EGFR (BEAKER) (test 117 mL/min/1.73 ESTIM ATED GFR IS code = 1092) sq m NOT ACCURATE CREATININE CLEARANCE IN PREDICTING GLOMERULAR FILTRATION RATE . ESTIMATED GFR I S NOT APPLICABLE FOR DIALYSIS PATIEN TS. HEPATIC FUNCTION [id number] 05:55:00 Test Item Value Reference Range Interpretation Comments TOTAL PROTEIN (BEAKER) (test code = 6.1 gm/dL 6.0-8.3 770) ALBUMIN (BEAKER) (test code = 1145) 2.9 g/dL 3.5-5.0 L BILIRUBIN TOTAL (BEAKER) (test code 1.0 mg/dL 0.2-1.2 = 377) BILIRUBIN DIRECT (BEAKER) (test 0.6 mg/dL 0.1-0.5 H code = 706) ALKALINE PHOSPHATASE (BEAKER) (test 290 U/L 40-150 H code = 346) AST (SGOT) (BEAKER) (test code = 26 U/L 5-34 353) ALT (SGPT) (BEAKER) (test code = 19 U/L 6-55 347) [id number] 12:15:00 Test Item Value Reference Range Interpretation Comments LIPASE (BEAKER) (test code = 749) 392 U/L 8-78 H HEPATIC FUNCTION [id number] 05:48:00 Test Item Value Reference Range Interpretation Comments TOTAL PROTEIN (BEAKER) (test code = 6.0 gm/dL 6.0-8.3 770) ALBUMIN (BEAKER) (test code = 1145) 2.9 g/dL 3.5-5.0 L BILIRUBIN TOTAL (BEAKER) (test code 1.3 mg/dL 0.2-1.2 H = 377) BILIRUBIN DIRECT (BEAKER) (test 0.8 mg/dL 0.1-0.5 H code = 706) ALKALINE PHOSPHATASE (BEAKER) (test 306 U/L 40-150 H code = 346) AST (SGOT) (BEAKER) (test code = 32 U/L 5-34 353) ALT (SGPT) (BEAKER) (test code = 23 U/L 6-55 347) BASIC METABOLIC [id number] 05:48:00 Test Item Value Reference Range Interpretation Comments SODIUM (BEAKER) 137 meq/L 136-145 (test code = 381) POTASSIUM (BEAKER) 3.5 meq/L 3.5-5.1 (test code = 379) CHLORIDE (BEAKER) 105 meq/L 98-107 (test code = 382) CO2 (BEAKER) (test 25 meq/L 22-29 code = 355) BLOOD UREA NITROGEN 15 mg/dL 7-21 (BEAKER) (test code = 354) CREATININE (BEAKER) 0.61 mg/dL 0.57-1.25 (test code = 358) GLUCOSE RANDOM 66 mg/dL 70-105 L (BEAKER) (test code = 652) CALCIUM (BEAKER) 8.8 mg/dL 8.4-10.2 (test code = 697) EGFR (BEAKER) (test 110 mL/min/1.73 ESTIM ATED GFR IS code = 1092) sq m NOT ACCURATE CREATININE CLEARANCE IN PREDICTING GLOMERULAR FILTRATION RATE . ESTIMATED GFR I S NOT APPLICABLE FOR DIALYSIS PATIEN TS. CBC W/PLT COUNT & AUTO [id number] 05:31:00 Test Item Value Reference Range Interpretation Comments WHITE BLOOD CELL COUNT (BEAKER) 13.5 K/ L 3.5-10.5 H (test code = 775) RED BLOOD CELL COUNT (BEAKER) 3.44 M/ L 3.93-5.22 L (test code = 761) HEMOGLOBIN (BEAKER) (test code = 10.4 GM/DL 11.2-15.7 L 410) HEMATOCRIT (BEAKER) (test code = 32.4 % 34.1-44.9 L 411) MEAN CORPUSCULAR VOLUME (BEAKER) 94.2 fL 79.4-94.8 (test code = 753) MEAN CORPUSCULAR HEMOGLOBIN 30.2 pg 25.6-32.2 (BEAKER) (test code = 751) MEAN CORPUSCULAR HEMOGLOBIN CONC 32.1 GM/DL 32.2-35.5 L (BEAKER) (test code = 752) RED CELL DISTRIBUTION WIDTH 12.9 % 11.7-14.4 (BEAKER) (test code = 412) PLATELET COUNT (BEAKER) (test 268 K/CU MM 150-450 code = 756) MEAN PLATELET VOLUME (BEAKER) 10.1 fL 9.4-12.3 (test code = 754) NUCLEATED RED BLOOD CELLS 0 /100 WBC 0-0 (BEAKER) (test code = 413) NEUTROPHILS RELATIVE PERCENT 81 % (BEAKER) (test code = 429) LYMPHOCYTES RELATIVE PERCENT 11 % (BEAKER) (test code = 430) MONOCYTES RELATIVE PERCENT 6 % (BEAKER) (test code = 431) EOSINOPHILS RELATIVE PERCENT 1 % (BEAKER) (test code = 432) BASOPHILS RELATIVE PERCENT 0 % (BEAKER) (test code = 437) NEUTROPHILS ABSOLUTE COUNT 10.85 K/ L 1.56-6.13 H (BEAKER) (test code = 670) LYMPHOCYTES ABSOLUTE COUNT 1.54 K/ L 1.18-3.74 (BEAKER) (test code = 414) MONOCYTES ABSOLUTE COUNT (BEAKER) 0.81 K/ L 0.24-0.36 H (test code = 415) EOSINOPHILS ABSOLUTE COUNT 0.17 K/ L 0.04-0.36 (BEAKER) (test code = 416) BASOPHILS ABSOLUTE COUNT (BEAKER) 0.05 K/ L 0.01-0.08 (test code = 417) IMMATURE GRANULOCYTES-RELATIVE 0 % 0-1 PERCENT (BEAKER) (test code = 2801) IMMUNOGLOBULIN G (IGG)2018-03-31 17:03:00 Test Item Value Reference Range Interpretation Comments IMMUNOGLOBULIN G (IGG) (BEAKER) 1310 mg/dL 540-1822 (test code = 427) IMMUNOGLOBULIN M (IGM)2018-03-31 17:03:00 Test Item Value Reference Range Interpretation Comments IMMUNOGLOBULIN M (IGM) (BEAKER) 119 mg/dL 22-293 (test code = 638) HEPATITIS PANEL, [id number] 10:33:00 Test Item Value Reference Range Interpretation Comments HEPATITIS A IGM ANTIBODY (BEAKER) Nonreactive Nonreactive (test code = 498) HEPATITIS B CORE IGM ANTIBODY Nonreactive Nonreactive (BEAKER) (test code = 645) HEPATITIS C ANTIBODY (BEAKER) Nonreactive Nonreactive (test code = 367) HEPATITIS B SURFACE ANTIGEN (2) Nonreactive Nonreactive (BEAKER) (test code = 2585) [id number] 10:30:00 Test Item Value Reference Range Interpretation Comments LIPASE (BEAKER) (test code = 749) > U/L 8-78 H GAMMA GLUTAMYL TRANSFERASE (GGT)2018-03-31 10:14:00 Test Item Value Reference Range Interpretation Comments GAMMA GLUTAMYL TRANSFERASE (BEAKER) 150 U/L 9-64 H (test code = 364) BASIC METABOLIC [id number] 06:58:00 Test Item Value Reference Range Interpretation Comments SODIUM (BEAKER) 140 meq/L 136-145 (test code = 381) POTASSIUM (BEAKER) 3.7 meq/L 3.5-5.1 (test code = 379) CHLORIDE (BEAKER) 107 meq/L 98-107 (test code = 382) CO2 (BEAKER) (test 24 meq/L 22-29 code = 355) BLOOD UREA NITROGEN 15 mg/dL 7-21 (BEAKER) (test code = 354) CREATININE (BEAKER) 0.75 mg/dL 0.57-1.25 (test code = 358) GLUCOSE RANDOM 103 mg/dL 70-105 (BEAKER) (test code = 652) CALCIUM (BEAKER) 9.7 mg/dL 8.4-10.2 (test code = 697) EGFR (BEAKER) (test 87 mL/min/1.73 ESTIMA MIKA GFR IS code = 1092) sq m NOT ACCURATE CREATININE CLEARANCE IN PREDICTING GLOMERULAR FILTRATION RATE . ESTIMATED GFR I S NOT APPLICABLE FOR DIALYSIS PATIEN TS. HEPATIC FUNCTION [id number] 06:55:00 Test Item Value Reference Range Interpretation Comments TOTAL PROTEIN (BEAKER) (test code = 7.4 gm/dL 6.0-8.3 770) ALBUMIN (BEAKER) (test code = 1145) 3.7 g/dL 3.5-5.0 BILIRUBIN TOTAL (BEAKER) (test code 1.3 mg/dL 0.2-1.2 H = 377) BILIRUBIN DIRECT (BEAKER) (test 0.7 mg/dL 0.1-0.5 H code = 706) ALKALINE PHOSPHATASE (BEAKER) (test 411 U/L 40-150 H code = 346) AST (SGOT) (BEAKER) (test code = 44 U/L 5-34 H 353) ALT (SGPT) (BEAKER) (test code = 37 U/L 6-55 347) PROTHROMBIN [id number] 06:37:00 Test Item Value Reference Range Interpretation Comments PROTIME (BEAKER) (test code = 13.4 seconds 11.7-14.7 759) INR (BEAKER) (test code = 370) 1.0 <=5.9 RECOMMENDED COUMADIN/WARFARIN INR THERAPY RANGESSTANDARD DOSE: 2.0 - 3.0 Includes: PROPHYLAXIS for venous thrombosis, systemic embolization; TREATMENT for venous thrombosis and/or pulmonary embolus.HIGH RISK: Target INR is 2.5-3.5 for patients with mechanical heart valves.CBC W/PLT COUNT & AUTO [id number] 06:27:00 Test Item Value Reference Range Interpretation Comments WHITE BLOOD CELL COUNT (BEAKER) 13.6 K/ L 3.5-10.5 H (test code = 775) RED BLOOD CELL COUNT (BEAKER) 4.06 M/ L 3.93-5.22 (test code = 761) HEMOGLOBIN (BEAKER) (test code = 12.0 GM/DL 11.2-15.7 410) HEMATOCRIT (BEAKER) (test code = 37.8 % 34.1-44.9 411) MEAN CORPUSCULAR VOLUME (BEAKER) 93.1 fL 79.4-94.8 (test code = 753) MEAN CORPUSCULAR HEMOGLOBIN 29.6 pg 25.6-32.2 (BEAKER) (test code = 751) MEAN CORPUSCULAR HEMOGLOBIN CONC 31.7 GM/DL 32.2-35.5 L (BEAKER) (test code = 752) RED CELL DISTRIBUTION WIDTH 12.8 % 11.7-14.4 (BEAKER) (test code = 412) PLATELET COUNT (BEAKER) (test 344 K/CU MM 150-450 code = 756) MEAN PLATELET VOLUME (BEAKER) 10.1 fL 9.4-12.3 (test code = 754) NUCLEATED RED BLOOD CELLS 0 /100 WBC 0-0 (BEAKER) (test code = 413) NEUTROPHILS RELATIVE PERCENT 83 % (BEAKER) (test code = 429) LYMPHOCYTES RELATIVE PERCENT 11 % (BEAKER) (test code = 430) MONOCYTES RELATIVE PERCENT 5 % (BEAKER) (test code = 431) EOSINOPHILS RELATIVE PERCENT 0 % (BEAKER) (test code = 432) BASOPHILS RELATIVE PERCENT 0 % (BEAKER) (test code = 437) NEUTROPHILS ABSOLUTE COUNT 11.23 K/ L 1.56-6.13 H (BEAKER) (test code = 670) LYMPHOCYTES ABSOLUTE COUNT 1.50 K/ L 1.18-3.74 (BEAKER) (test code = 414) MONOCYTES ABSOLUTE COUNT (BEAKER) 0.73 K/ L 0.24-0.36 H (test code = 415) EOSINOPHILS ABSOLUTE COUNT 0.03 K/ L 0.04-0.36 L (BEAKER) (test code = 416) BASOPHILS ABSOLUTE COUNT (BEAKER) 0.03 K/ L 0.01-0.08 (test code = 417) IMMATURE GRANULOCYTES-RELATIVE 1 % 0-1 PERCENT (BEAKER) (test code = 2801) URINALYSIS W/ [id number] 02:14:00 Test Item Value Reference Range Interpretation Comments COLOR (BEAKER) (test code = Yellow 470) CLARITY (BEAKER) (test code = Clear 469) SPECIFIC GRAVITY UA (BEAKER) 1.029 1.001-1.035 (test code = 468) PH UA (BEAKER) (test code = 5.0 5.0-8.0 467) PROTEIN UA (BEAKER) (test code Negative Negative = 464) GLUCOSE UA (BEAKER) (test code Negative Negative = 365) KETONES UA (BEAKER) (test code Negative Negative = 371) BILIRUBIN UA (BEAKER) (test Negative Negative code = 462) BLOOD UA (BEAKER) (test code = Trace Negative A 461) NITRITE UA (BEAKER) (test code Negative Negative = 465) LEUKOCYTE ESTERASE UA (BEAKER) Negative Negative (test code = 466) UROBILINOGEN UA (BEAKER) (test 0.2 mg/dL 0.2-1.0 code = 463) RBC UA (BEAKER) (test code = < /HPF 519) WBC UA (BEAKER) (test code = < /HPF 520) SOURCE(BEAKER) (test code = Urine, Voided 9086) SCREEN, [id number] 02:13:00 Test Item Value Reference Range Interpretation Comments TEST URINE (BEAKER) (test Negative code = 583) BASIC METABOLIC [id number] 23:44:00 Test Item Value Reference Range Interpretation Comments SODIUM (BEAKER) 139 meq/L 136-145 (test code = 381) POTASSIUM (BEAKER) 4.0 meq/L 3.5-5.1 (test code = 379) CHLORIDE (BEAKER) 109 meq/L 98-107 H (test code = 382) CO2 (BEAKER) (test 22 meq/L 22-29 code = 355) BLOOD UREA NITROGEN 11 mg/dL 7-21 (BEAKER) (test code = 354) CREATININE (BEAKER) 0.76 mg/dL 0.57-1.25 (test code = 358) GLUCOSE RANDOM 120 mg/dL 70-105 H (BEAKER) (test code = 652) CALCIUM (BEAKER) 9.5 mg/dL 8.4-10.2 (test code = 697) EGFR (BEAKER) (test 86 mL/min/1.73 ESTIMA MIKA GFR IS code = 1092) sq m NOT ACCURATE CREATININE CLEARANCE IN PREDICTING GLOMERULAR FILTRATION RATE . ESTIMATED GFR I S NOT APPLICABLE FOR DIALYSIS PATIEN TS. CBC W/PLT COUNT & AUTO [id number] 23:29:00 Test Item Value Reference Range Interpretation Comments WHITE BLOOD CELL COUNT (BEAKER) 15.0 K/ L 3.5-10.5 H (test code = 775) RED BLOOD CELL COUNT (BEAKER) 4.07 M/ L 3.93-5.22 (test code = 761) HEMOGLOBIN (BEAKER) (test code = 12.2 GM/DL 11.2-15.7 410) HEMATOCRIT (BEAKER) (test code = 37.5 % 34.1-44.9 411) MEAN CORPUSCULAR VOLUME (BEAKER) 92.1 fL 79.4-94.8 (test code = 753) MEAN CORPUSCULAR HEMOGLOBIN 30.0 pg 25.6-32.2 (BEAKER) (test code = 751) MEAN CORPUSCULAR HEMOGLOBIN CONC 32.5 GM/DL 32.2-35.5 (BEAKER) (test code = 752) RED CELL DISTRIBUTION WIDTH 12.6 % 11.7-14.4 (BEAKER) (test code = 412) PLATELET COUNT (BEAKER) (test 399 K/CU MM 150-450 code = 756) MEAN PLATELET VOLUME (BEAKER) 10.4 fL 9.4-12.3 (test code = 754) NUCLEATED RED BLOOD CELLS 0 /100 WBC 0-0 (BEAKER) (test code = 413) NEUTROPHILS RELATIVE PERCENT 90 % (BEAKER) (test code = 429) LYMPHOCYTES RELATIVE PERCENT 5 % (BEAKER) (test code = 430) MONOCYTES RELATIVE PERCENT 4 % (BEAKER) (test code = 431) EOSINOPHILS RELATIVE PERCENT 0 % (BEAKER) (test code = 432) BASOPHILS RELATIVE PERCENT 0 % (BEAKER) (test code = 437) NEUTROPHILS ABSOLUTE COUNT 13.54 K/ L 1.56-6.13 H (BEAKER) (test code = 670) LYMPHOCYTES ABSOLUTE COUNT 0.76 K/ L 1.18-3.74 L (BEAKER) (test code = 414) MONOCYTES ABSOLUTE COUNT (BEAKER) 0.58 K/ L 0.24-0.36 H (test code = 415) EOSINOPHILS ABSOLUTE COUNT 0.00 K/ L 0.04-0.36 L (BEAKER) (test code = 416) BASOPHILS ABSOLUTE COUNT (BEAKER) 0.03 K/ L 0.01-0.08 (test code = 417) IMMATURE GRANULOCYTES-RELATIVE 0 % 0-1 PERCENT (BEAKER) (test code = 2802)
--- NOTE | 2022-07-09 14:12 | RAD REPORT ---
EXAM DESCRIPTION: RAD - Chest Single View - 07/09/2022 2:03 pm CLINICAL HISTORY: CHEST PAIN Chest pain. COMPARISON: No comparisons FINDINGS: Portable technique limits examination quality. The lungs are grossly clear. The heart is upper limit normal in size. No displaced fractures. IMPRESSION: No acute intrathoracic process suspected.
[2022-07-09] MEDS ORDERED: HYDROMORPHONE HCL 1 MG/ML INJ ONE ×2 (14:13→17:37)
[2022-07-09] MEDS ORDERED: ONDANSETRON 4 MG/2 ML VIAL ONE ×2 (14:13→17:37)
[2022-07-09 14:16] LABS: Absolute Lymphocytes (CBC) 0.9 K/uL (0.7-4.9); Lymphocytes % 5.9 % (15.3-44.8); MCV 87.2 fL (80-100); MPV 7.7 fL (7.6-11.3); RBC Red Blood Cell Count 4.25 M/uL (3.86-4.86)
[2022-07-09 14:21] LABS: Protime INR 0.95
[2022-07-09 14:41] LABS: Albumin 3.4 g/dL (3.4-5.0); Bilirubin Direct 0.8 mg/dL (0-0.2); Bilirubin Total 1.1 mg/dL (0.2-1.0); Magnesium 1.6 mg/dL (1.6-2.4); Potassium 3.7 mmol/L (3.5-5.1); Protein, Total 8.5 g/dL (6.4-8.2); Troponin High Sensitivity 4.9 pg/mL (<58.9)
--- NOTE | 2022-07-09 15:32 | RAD REPORT ---
EXAM DESCRIPTION: CT - Angio Aorta For Dissection - 07/09/2022 3:23 pm CLINICAL HISTORY: Chest pain radiating to the back. mid back pain, chest pain TECHNIQUE: CT angiography of the aorta was performed with MIPs. All CT scans are performed using dose optimization technique as appropriate and may include automated exposure control or mA/KV adjustment according to patient size. FINDINGS: A left aortic arch is present with normal branching pattern of the great vessels.No acute aortic finding is seen such as aneurysm, penetrating ulcer or dissection. The celiac axis, SMA, ENID and renal arteries are patent. No evidence of pulmonary embolism. The lungs are clear. The liver demonstrates no focal mass or biliary dilatation.The gallbladder is distended and contains several stones.The spleen, pancreas, adrenal glands and kidneys are within normal limits for arterial phase imaging. No bowel obstruction, free fluid or abscess.No pathologic enlarged lymphadenopathy identified. No fracture or worrisome bone lesion seen. IMPRESSION: No acute aortic finding is demonstrated. Gallbladder is distended and contains several stones with thickened gallbladder wall. Findings are landa spicious for acute cholecystitis. Gallbladder ultrasound would be recommended
--- NOTE | 2022-07-09 16:01 | RAD REPORT ---
EXAM DESCRIPTION: US - Abdomen Exam Limited - 07/09/2022 3:45 pm CLINICAL HISTORY: mid back pain COMPARISON: Abdomen Exam Complete dated 02/19/2018 FINDINGS: The gallbladder demonstrates distention of the gallbladder with wall thickening and multip le gallbladder stones. No pericholecystic fluid or gallbladder wall thickening. The common bile duct is normal measuring 5 mm.. The liver demonstrates no findings of intrahepatic biliary dilatation. IMPRESSION: Cholelithiasis with gallbladder distention and wall thickening suggests acute cholecysti tis.
--- NOTE | 2022-07-09 16:47 | EDPHYS ---
Physician Documentation [facility] Name: Leni Foss Age: 42 yrs Sex: Female : 1980 Arrival Date: 07/09/2022 Time: 13:18 Bed 17 Private MD: Ayla Steen H ED Physician Madie Eason HPI: 07/09 13:55 This 42 yrs old Female presents to ER via Ambulatory with complaints of Chest Pain, cp Back Pain. 13:55 The patient presents with pain that is acute, with no known mechanism of injury. The cp symptoms are located in the mid back. 13:55 Onset: The symptoms/episode began/occurred this morning. The pain radiates to the chest cp and epigastric area. Associated signs and symptoms: Pertinent positives: nausea, Pertinent negatives: dysuria, fever, headache, numbness, weakness. The problem was sustained from unknown cause. 13:58 Patient presents to the emergency department with complaints of mid and upper back pain cp and started this morning and radiates to the chest and epigastric area of abdomen. Patient reports she was seen at [place] earlier today had lab work done and CT scan performed. Patient reports she was sent home but has continued to have pain so she came to this emergency department. Patient reports a history of primary sclerosing cholangitis and sees a Dr. Shankar Chu at [facility] as her liver specialist and a Dr. Cortes is her GI doctor. Historical: - Allergies: 13:38 PENICILLINS; ph 13:38 Amoxicillin; ph - PMHx: 13:38 Hyperlipidemia; ph - PSHx: 13:38 tubal ligation; ph - Immunization history:: Adult Immunizations unknown. - Social history:: Smoking status: Patient denies any tobacco usage or history of. ROS: 14:00 Constitutional: Negative for body aches, chills, fever, poor PO intake. cp 14:00 Cardiovascular: Positive for chest pain, Negative for edema, palpitations. 14:00 Eyes: Negative for injury, pain, redness, and discharge. cp 14:00 ENT: Negative for drainage from ear(s), ear pain, sore throat, difficulty swallowing, difficulty handling secretions. 14:00 Respiratory: Negative for cough, shortness of breath, wheezing. 14:00 Abdomen/GI: Positive for abdominal pain, nausea, of the epigastric area, Negative for vomiting, diarrhea, constipation. 14:00 Back: Positive for pain at rest, pain with movement, of the mid and upper back, Negative for injury or acute deformity, decreased range of motion. 14:00 : Negative for urinary symptoms, flank pain. 14:00 Skin: Negative for cellulitis, rash. 14:00 Neuro: Negative for altered mental status, dizziness, headache, syncope, weakness. Exam: 14:05 Constitutional: The patient appears in no acute distress, alert, awake, cp non-diaphoretic, non-toxic, well developed, well nourished, in obvious pain, uncomfortable. 14:05 Head/Face: Normocephalic, atraumatic. cp 14:05 Eyes: Periorbital structures: appear normal, Conjunctiva: normal, no exudate, no injection, Sclera: no appreciated abnormality, Lids and lashes: appear normal, bilaterally. 14:05 ENT: External ear(s): are unremarkable, Nose: is normal, Mouth: Lips: moist, Oral mucosa: pink and intact, moist, Posterior pharynx: Airway: no evidence of obstruction, patent, Tonsils: are normal in appearance, erythema, is not appreciated, exudate, is not appreciated. 14:05 Neck: ROM/movement: is normal, is supple, without pain, no range of motions limitations, no meningismus. 14:05 Chest/axilla: Inspection: normal. 14:05 Cardiovascular: Rate: normal, Rhythm: regular, Edema: is not appreciated, JVD: is not appreciated. 14:05 Respiratory: the patient does not display signs of respiratory distress, Respirations: normal, no use of accessory muscles, no retractions, labored breathing, is not present, Breath sounds: are clear throughout, no decreased breath sounds, no stridor, no wheezing. 14:05 Abdomen/GI: Inspection: abdomen appears normal, Bowel sounds: active, all quadrants, Palpation: soft, in all quadrants, severe abdominal tenderness, in the epigastric area, rebound tenderness, is not appreciated, voluntary guarding, is elicited in the epigastric area. 14:05 Back: pain, that is severe, of the mid and upper back, ROM is normal, CVA tenderness, is absent, Straight leg raises: of both lower extremities does not illicit pain. 14:05 Skin: cellulitis, is not appreciated, no rash present. 14:05 Neuro: Orientation: to person, place \T\ time. Mentation: is normal, Motor: moves all fours, strength is normal. 14:52 ECG was reviewed by the Attending Physician. Vital Signs: 13:35 BP 145 / 100; Pulse 99; Resp 18; Temp 98.0; Pulse Ox 100% on R/A; Weight 69.85 kg; ph Height 5 ft. 2 in. (157.48 cm); 14:00 BP 138 / 94; Pulse 88; Pulse Ox 98% ; ko1 15:00 BP 132 / 76; Pulse 74; Pulse Ox 99% on R/A; ko1 16:00 BP 145 / 88; Pulse 82; Pulse Ox 99% on R/A; ko1 18:00 BP 120 / 60; Pulse 74; Pulse Ox 99% on R/A; ko1 19:20 BP 124 / 65; Pulse 70; Resp 17 S; Pulse Ox 98% on R/A; ha1 20:20 BP 127 / 81; Pulse 80; Resp 18 S; Pulse Ox 98% on R/A; ha1 21:20 BP 125 / 80; Pulse 78; Resp 18 S; Pulse Ox 98% on R/A; ha1 13:35 Body Mass Index 28.17 (69.85 kg, 157.48 cm) ph MDM: 13:42 Patient medically screened. cp 14:00 Differential diagnosis: Basilar Pneumonia Cholelithiasis Pyelonephritis cp Ureterolithiasis choledocholithiasis, AAA. 16:30 Data reviewed: vital signs, nurses notes, lab test result(s), EKG, radiologic studies, CT scan, plain films. 16:30 Physician consultation: Edinson Sanchez MD was called at 16:30, was contacted at 16:30, regarding consult, patient's condition, after a discussion of the case, a recommendation for transfer for higher level of care is made, due to lack of GI service being available. 18:16 Physician consultation: was contacted at 17:50, regarding regarding transfer, to [facility]. patient's condition, accepting physician will be DR Cooper. 07/09 13:47 Order name: Basic Metabolic Panel; Complete Time: 14:43 07/09 14:43 Interpretation: Normal except: NA 134; GLUC 121. 07/09 13:47 Order name: CBC with Diff; Complete Time: 14:43 07/09 14:43 Interpretation: Normal except: WBC 15.60; JIMMY% 89.2; LYM% 5.9; NEUT A 13.9. 07/09 13:47 Order name: LFT's; Complete Time: 14:43 07/09 14:43 Interpretation: Normal except: AST 130; ALT 126; ALK 950; BILIT 1.1; BILID 0.8; TP 8.5; cp GLOB 5.1; A/G 0.7. 07/09 13:47 Order name: Magnesium; Complete Time: 14:43 07/09 13:47 Order name: PT-INR; Complete Time: 14:43 07/09 13:47 Order name: Troponin HS; Complete Time: 14:43 07/09 13:47 Order name: XRAY Chest (1 view); Complete Time: 14:43 07/09 14:44 Interpretation: Report review. 07/09 13:47 Order name: Lipase; Complete Time: 14:43 07/09 14:45 Interpretation: Reviewed. 07/09 13:53 Order name: CT Aorta for Dissection; Complete Time: 16:11 07/09 16:12 Interpretation: Report reviewed. 07/09 14:55 Order name: US Abdomen Limited: gallbladder; Complete Time: 16:11 07/09 16:12 Interpretation: Report reviewed. 07/09 16:48 Order name: SARS RAPID; Complete Time: 17:45 em1 07/09 17:45 Interpretation: Reviewed. 07/09 16:56 Order name: Lactate w/ 2H reflex if indic.; Complete Time: 19:03 07/09 19:04 Interpretation: LAC 0.6; Reviewed. 07/09 16:56 Order name: Procalcitonin; Complete Time: 19:03 07/09 19:04 Interpretation: Abnormal: Procalcitonin 0.34. 07/09 16:56 Order name: Blood Culture Adult (2) 07/09 13:47 Order name: EKG; Complete Time: 13:48 07/09 13:47 Order name: Cardiac monitoring; Complete Time: 14:27 07/09 13:47 Order name: EKG - Nurse/Tech; Complete Time: 14:40 cp 07/09 13:47 Order name: IV Saline Lock; Complete Time: 14:08 cp 07/09 13:47 Order name: Labs collected and sent; Complete Time: 14:08 cp 07/09 13:47 Order name: O2 Per Protocol; Complete Time: 14:08 cp 07/09 13:47 Order name: O2 Sat Monitoring; Complete Time: 14:08 cp EC:52 Rate is 71 beats/min. Rhythm is regular. IA interval is normal. QRS interval is normal. cp QT interval is normal. T waves are Inverted in leads III, aVR. Interpreted by me. Reviewed by me. Administered Medications: 14:12 Drug: Zofran (Ondansetron) 4 mg Route: IVP; Site: left antecubital; ko1 15:00 Follow up: Response: No adverse reaction ko1 14:17 Drug: Dilaudid (HYDROmorphone) 1 mg Route: IVP; Site: left antecubital; ko1 15:00 Follow up: Response: No adverse reaction; Pain is decreased ko1 17:33 Drug: NS 0.9% 1000 ml Route: IV; Rate: 1 bolus; Site: left antecubital; ko1 18:53 Follow up: IV Status: Completed infusion; IV Intake: 1000ml ko1 17:46 Drug: Zofran (Ondansetron) 4 mg Route: IVP; Site: left antecubital; ko1 18:52 Follow up: Response: No adverse reaction ko1 17:47 Drug: Dilaudid (HYDROmorphone) 1 mg Route: IVP; Site: left antecubital; ko1 18:52 Follow up: Response: No adverse reaction; Pain is decreased ko1 18:17 Drug: Mefoxin (cefOXitin) 1 grams Route: IVPB; Infused Over: 30 mins; Site: left ko1 antecubital; 18:50 Follow up: IV Status: Completed infusion; IV Intake: 50ml ko1 18:52 Drug: metroNIDAZOLE 500 mg Volume: 100 ml; Route: IVPB; Infused Over: 30 mins; Site: ko1 left antecubital; 18:55 Drug: NS 0.9% 1000 ml Route: IV; Rate: 125 ml/hr; Site: left antecubital; ko1 21:00 Follow up: Response: No adverse reaction; IV Status: Completed infusion; IV Intake: ha1 1000ml 21:30 Drug: Dilaudid (HYDROmorphone) 1 mg Route: IVP; Site: left antecubital; ha1 21:45 Follow up: Response: No adverse reaction; Pain is decreased; RASS: Alert and Calm (0) ha1 Disposition Summary: 07/09/22 16:46 Transfer Ordered Transfer Location: [facility] cp Reason: Higher level of care cp Condition: Stable cp Problem: new cp Symptoms: have improved cp Accepting Physician: DR Cooper(07/09/22 21:48) ha1 Diagnosis - Acute cholecystitis cp - Abnormal results of liver function studies cp Forms: - Medication Reconciliation Form cp - SBAR form cp Signatures: Dispatcher [employer] Mandy Mayorga RN RN ph Marcial Seymour PA PA cp Awa Birmingham RN RN ha1 Krystal Mayer RN RN ko1 Corrections: (The following items were deleted from the chart) 17:33 16:00 Constitutional: Negative for body aches, chills, fever, poor PO intake, cp cp 17:33 16:00 Cardiovascular: Positive for chest pain, Negative for edema, palpitations, cp cp 17:37 14:00 All other systems are negative, cp cp 18:13 16:46 Doctor cp cp 21:48 18:13 DR Cooper cp ha1
--- NOTE | 2022-07-09 16:47 | ER ---
Nurse's Notes [facility] Name: Leni Foss Age: 42 yrs Sex: Female : 1980 Arrival Date: 07/09/2022 Time: 13:18 Bed 17 Private MD: Ayla Steen H Diagnosis: Acute cholecystitis;Abnormal results of liver function studies Presentation: 07/09 13:35 Chief complaint: Patient states: Pain in mid back that radiates through to epigastric ph area and bilateral rib area, nausea, belching. Was just seen at [place] and had labs and CT done, only findings were cervical spondylitis. Pt appears uncomfortable in triage, noted to be belching. Coronavirus screen: Vaccine status: Patient reports being unvaccinated. Ebola Screen: No symptoms or risks identified at this time. Initial Sepsis Screen: Does the patient meet any 2 criteria? No. Patient's initial sepsis screen is negative. Does the patient have a suspected source of infection? No. Patient's initial sepsis screen is negative. Risk Assessment: Do you want to hurt yourself or someone else? Patient reports no desire to harm self or others. Onset of symptoms was July 09, 2022. 13:35 Method Of Arrival: Ambulatory ph 13:35 Acuity: ANABELL 3 ph Historical: - Allergies: 13:38 PENICILLINS; ph 13:38 Amoxicillin; ph - PMHx: 13:38 Hyperlipidemia; ph - PSHx: 13:38 tubal ligation; ph - Immunization history:: Adult Immunizations unknown. - Social history:: Smoking status: Patient denies any tobacco usage or history of. Screenin:55 [facility] ED Fall Risk Assessment (Adult) History of falling in the last 3 months, ko1 including since admission No falls in past 3 months (0 pts). Abuse screen: Denies threats or abuse. Denies injuries from another. Nutritional screening: No deficits noted. Tuberculosis screening: No symptoms or risk factors identified. Assessment: 13:55 General: Appears distressed, uncomfortable, Behavior is cooperative, appropriate for ko1 age, anxious. Pain: Pain does not radiate. Pain began suddenly. Neuro: No deficits noted. Cardiovascular: No deficits noted. Respiratory: No deficits noted. GI: Reports lower abdominal pain, cramping, nausea. : No deficits noted. EENT: No deficits noted. Derm: No deficits noted. Musculoskeletal: No deficits noted. Vital Signs: 13:35 BP 145 / 100; Pulse 99; Resp 18; Temp 98.0; Pulse Ox 100% on R/A; Weight 69.85 kg; ph Height 5 ft. 2 in. (157.48 cm); 14:00 BP 138 / 94; Pulse 88; Pulse Ox 98% ; ko1 15:00 BP 132 / 76; Pulse 74; Pulse Ox 99% on R/A; ko1 16:00 BP 145 / 88; Pulse 82; Pulse Ox 99% on R/A; ko1 18:00 BP 120 / 60; Pulse 74; Pulse Ox 99% on R/A; ko1 19:20 BP 124 / 65; Pulse 70; Resp 17 S; Pulse Ox 98% on R/A; ha1 20:20 BP 127 / 81; Pulse 80; Resp 18 S; Pulse Ox 98% on R/A; ha1 21:20 BP 125 / 80; Pulse 78; Resp 18 S; Pulse Ox 98% on R/A; ha1 13:35 Body Mass Index 28.17 (69.85 kg, 157.48 cm) ph ED Course: 13:18 Patient arrived in ED. as 13:19 Ayla Steen DO is Private Physician. as 13:38 Triage completed. ph 13:38 Arm band placed on Patient placed in an exam room. ph 13:40 Marcial Seymour PA is PHCP. cp 13:40 Madie Eason MD is Attending Physician. cp 13:42 Krystal Mayer, JANNETTE is Primary Nurse. ko1 13:55 Patient has correct armband on for positive identification. Bed in low position. Call ko1 light in reach. Side rails up X 1. Pulse ox on. NIBP on. 13:55 No provider procedures requiring assistance completed. Inserted saline lock: 20 gauge ko1 in left antecubital area, using aseptic technique. Blood collected. Patient maintains SpO2 saturation greater than 95% on room air. 14:05 XRAY Chest (1 view) In Process Unspecified. EDMS 14:08 Basic Metabolic Panel Sent. ko1 14:08 CBC with Diff Sent. ko1 14:08 Lipase Sent. ko1 14:08 LFT's Sent. ko1 14:08 Magnesium Sent. ko1 14:08 PT-INR Sent. ko1 14:08 Troponin HS Sent. ko1 15:24 CT Aorta for Dissection In Process Unspecified. EDMS 15:47 US Abdomen Limited: gallbladder In Process Unspecified. EDMS 16:59 SARS RAPID Sent. mm9 16:59 COVID swab sent to lab. mm9 18:02 Blood Culture Adult (2) Sent. ko1 18:02 Procalcitonin Sent. ko1 18:02 Lactate w/ 2H reflex if indic. Sent. ko1 18:58 Blood Culture Adult (2) Sent. ko1 21:45 Patient transferred, IV remains in place. ha1 Administered Medications: 14:12 Drug: Zofran (Ondansetron) 4 mg Route: IVP; Site: left antecubital; ko1 15:00 Follow up: Response: No adverse reaction ko1 14:17 Drug: Dilaudid (HYDROmorphone) 1 mg Route: IVP; Site: left antecubital; ko1 15:00 Follow up: Response: No adverse reaction; Pain is decreased ko1 17:33 Drug: NS 0.9% 1000 ml Route: IV; Rate: 1 bolus; Site: left antecubital; ko1 18:53 Follow up: IV Status: Completed infusion; IV Intake: 1000ml ko1 17:46 Drug: Zofran (Ondansetron) 4 mg Route: IVP; Site: left antecubital; ko1 18:52 Follow up: Response: No adverse reaction ko1 17:47 Drug: Dilaudid (HYDROmorphone) 1 mg Route: IVP; Site: left antecubital; ko1 18:52 Follow up: Response: No adverse reaction; Pain is decreased ko1 18:17 Drug: Mefoxin (cefOXitin) 1 grams Route: IVPB; Infused Over: 30 mins; Site: left ko1 antecubital; 18:50 Follow up: IV Status: Completed infusion; IV Intake: 50ml ko1 18:52 Drug: metroNIDAZOLE 500 mg Volume: 100 ml; Route: IVPB; Infused Over: 30 mins; Site: ko1 left antecubital; 18:55 Drug: NS 0.9% 1000 ml Route: IV; Rate: 125 ml/hr; Site: left antecubital; ko1 21:00 Follow up: Response: No adverse reaction; IV Status: Completed infusion; IV Intake: ha1 1000ml 21:30 Drug: Dilaudid (HYDROmorphone) 1 mg Route: IVP; Site: left antecubital; ha1 21:45 Follow up: Response: No adverse reaction; Pain is decreased; RASS: Alert and Calm (0) ha1 Medication: 18:00 VIS not applicable for this client. ko1 Intake: 18:50 IV: 50ml; Total: 50ml. ko1 18:53 IV: 1000ml; Total: 1050ml. ko1 21:00 IV: 1000ml; Total: 2050ml. ha1 Outcome: 16:46 ER care complete, transfer ordered by . joel 21:45 Condition: stable ha1 21:45 Transferred by ground EMS to [facility], Note: [place] ha1 21:45 Discharge instructions given to patient, family, Instructed on the need for transfer, Demonstrated understanding of instructions. 21:48 Patient left the ED. ha1 Signatures: Dispatcher [employer] Nidia Irizarry Patricia, RN RN Marcial Weeks, Awa Jamil cp, RN RN ha1 Krystal Mayer RN RN Pearl Butler mm9
[2022-07-09 17:12] LABS: SARS-CoV-2 Antigen Rapid Res Negative (Negative)
[2022-07-09] MEDS ORDERED: NA CHLORIDE 0.9% 2,000 ML ONE (17:13)
[2022-07-09] MEDS ORDERED: CEFOXITIN SODIUM 1 GM/VIAL ONE (17:21)
[2022-07-09] MEDS ORDERED: METRONIDAZOLE 500mg IVPB 500 MG/100 ML BAG IV ONE (17:22)
[2022-07-09] MEDS ORDERED: HYDROMORPHONE HCL 2 MG/ML inj ONE (21:33)
[2022-07-09 22:13] VITALS: TEMP 98
[2022-07-09 22:15] VITALS: O2SAT 99
[2022-07-09 22:17] VITALS: BP 120/60
--- NOTE | 2022-07-10 17:02 | EKG ---
Test Date: 2022-07-09 Test Time: 14:45:17 Operations Section Manager: SHAYE MEASUREMENT RESULTS: Intervals: Rate: 71 OH: 140 QRSD: 80 QT: 404 QTc: 439 [place]: P: 47 OH: 140 QRS: 13 T: 20 INTERPRETIVE STATEMENTS: Normal sinus rhythm Normal ECG No previous ECG available for comparison Electronically Signed On 07-10-22 17:01:16 MICROBIOLOGY LAB MANAGER by Anup Johnson
== END 2022-07-09 21:48 | disposition short-term general hospital (02) ==
LOC: ER 13:17
DX: K81.0 Acute cholecystitis (principal); R94.5 Abnormal results of liver function studies; Z20.822 Contact with and (suspected) exposure to COVID-19; Z88.0 Allergy status to penicillin; Z88.1 Allergy status to other antibiotic agents
CPT/HCPCS: 93005; 87040 ×2; 85025; 80048; 36415; 83735; 85610; 80076; 83605; 84484; 83690; 84145; 71275; 74175; 71045; 76705; 87811; Q9967; J1170 ×3; J7030; J0694; J2405 ×2; 96361; 96365; 96375; 99285

== ENCOUNTER → 2023-10-04 | Emergency (ER) | payer BC ==
[~2023-10-04] MED LIST: ACETAMINOPHEN 500 MG TAB ONE; KETOROLAC 30 MG/ML INJ ONE
--- NOTE | 2023-10-04 12:31 | RAD REPORT ---
EXAM DESCRIPTION: RAD - Ankle Right 3 View - 10/04/2023 12:21 pm CLINICAL HISTORY: PAIN COMPARISON: None available TECHNIQUE: Right ankle, 3 views. FINDINGS: No fracture, dislocation or periosteal reaction. No joint effusion seen. No joint space na rrowing. No soft tissue abnormality. Small calcaneal spur. Enthesopathy at the Achilles tendon attach ment. IMPRESSION: No acute osseous abnormality of the right ankle. Small calcaneal spur and sequelae of en thesopathy at the Achilles tendon attachment.
--- NOTE | 2023-10-04 13:10 | ER ---
Nurse's Notes [facility] Name: Leni Foss Age: 43 yrs Sex: Female : 1980 Arrival Date: 10/04/2023 Time: 11:44 Bed Treatment Private MD: Diagnosis: Sprain of ankle Presentation: 10/03 11:52 Chief complaint: Patient states: Stepped out of truck and rolled right ankle. Swelling ld1 noted to right ankle. Coronavirus screen: At this time, the client does not indicate any symptoms associated with coronavirus-19. Ebola Screen: No symptoms or risks identified at this time. Initial Sepsis Screen: Does the patient meet any 2 criteria? No. Patient's initial sepsis screen is negative. Does the patient have a suspected source of infection? No. Patient's initial sepsis screen is negative. Risk Assessment: Do you want to hurt yourself or someone else? Patient reports no desire to harm self or others. Onset of symptoms was October 04, 2023. 11:52 Method Of Arrival: Wheelchair ld1 11:52 Acuity: ANABELL 4 ld1 Triage Assessment: 11:53 General: Appears in no apparent distress. comfortable, Behavior is calm, cooperative, ld1 appropriate for age. Pain: Complains of pain in right foot, right ankle, medial aspect of right foot, anterior aspect of right ankle and dorsum of right foot Pain does not radiate. Pain currently is 9 out of 10 on a pain scale. Quality of pain is described as throbbing, Pain began 1 hour ago. Is continuous. EENT: No signs and/or symptoms were reported regarding the EENT system. Neuro: Level of Consciousness is awake, alert, obeys commands, Oriented to person, place, time, situation. Cardiovascular: Capillary refill < 3 seconds Patient's skin is warm and dry. Respiratory: Airway is patent Respiratory effort is even, unlabored. GI: Abdomen is flat, non-distended. : No signs and/or symptoms were reported regarding the genitourinary system. Derm: No signs and/or symptoms reported regarding the dermatologic system. Musculoskeletal: Reports pain in right foot Pain is 9 out of 10 on a pain scale. BEAD WRAPPER: 13:22 unknown kd3 Historical: - Allergies: 11:53 Amoxicillin; ld1 11:53 PENICILLINS; ld1 - PMHx: 11:53 Hyperlipidemia; ld1 - PSHx: 11:53 tubal ligation; ld1 - Immunization history:: Adult Immunizations up to date. - Social history:: Smoking status: Patient denies any tobacco usage or history of. Patient/guardian denies using alcohol. Screenin:21 [facility] ED Fall Risk Assessment (Adult) History of falling in the last 3 months, kd3 including since admission No falls in past 3 months (0 pts) Confusion or Disorientation No (0 pts) Intoxicated or Sedated No (0 pts) Impaired Gait No (0 pts) Mobility Assist Device Used No (0 pt) Altered Elimination No (0 pt) Score/Fall Risk Level 0 - 2 = Low Risk Oriented to surroundings. Abuse screen: Denies threats or abuse. Denies injuries from another. Nutritional screening: No deficits noted. Tuberculosis screening: No symptoms or risk factors identified. Assessment: 12:20 General: Appears in no apparent distress. Behavior is calm, cooperative. Pain: kd3 Complains of pain in right foot and anterior aspect of right ankle and medial aspect of right foot and right ankle. Neuro: Level of Consciousness is awake, alert, obeys commands, Oriented to person, place, time, situation. Cardiovascular: Patient's skin is warm and dry. Respiratory: Airway is patent Trachea midline Respiratory effort is even, unlabored, Respiratory pattern is regular, symmetrical. Vital Signs: 11:52 BP 131 / 85; Pulse 58; Resp 18; Temp 98.2(TE); Pulse Ox 100% on R/A; Weight 61.23 kg; ld1 Height 5 ft. 2 in. ; Pain 9/10; 11:52 Body Mass Index 24.69 (61.23 kg, 157.48 cm) ld1 11:52 Pain Scale: Adult ld1 ED Course: 11:46 Patient arrived in ED. mg5 11:47 Bob Sethi MD is Attending Physician. ec2 11:53 Triage completed. ld1 11:53 Arm band placed on right wrist. ld1 12:21 Patient has correct armband on for positive identification. Provided Education on: pain kd3 medications . 12:23 Ankle Right 3 View In Process Unspecified. EDMS 13:21 Tiffany Gonzales, JANNETTE is Primary Nurse. kd3 13:22 No provider procedures requiring assistance completed. Patient did not have IV access kd3 during this emergency room visit. Administered Medications: 12:20 Drug: Ketorolac IM 30 mg IM once Route: IM; Site: right gluteus; kd3 13:23 Follow up: Response: No adverse reaction; Pain is decreased kd3 12:20 CANCELLED (Physician Discretion): [id number] mg PO once kd3 Medication: 12:22 VIS not applicable for this client. kd3 Outcome: 13:09 Discharge ordered by . ecDeloris 13:22 Discharged to home via wheelchair, with family, kd3 13:22 Condition: stable 13:22 Discharge instructions given to patient, family, Instructed on discharge instructions, follow up and referral plans. medication usage, Demonstrated understanding of instructions, follow-up care, medications, Prescriptions given X 1, :23 Patient left the ED. kd3 Signatures: Dispatcher [employer] Sherry Tate RN RN ld1 Tiffany Gonzales RN RN kd3 Mary Pina mg5 Bob Sethi MD MD ec2
--- NOTE | 2023-10-04 13:10 | EDPHYS ---
Physician Documentation [facility] Name: Leni Foss Age: 43 yrs Sex: Female : 1980 Arrival Date: 10/04/2023 Time: 11:44 Bed Treatment Private MD: ED Physician Bob Sethi HPI: 10/03 11:56 This 43 yrs old Female presents to ER via Wheelchair with complaints of Ankle ec2 Injury. 11:56 Patient arrives today for evaluation of a right ankle injury. Patient reports that she ec2 was stepping out of her truck and subsequently inverted her ankle. Patient reports no ground-level fall, no other injury. Complaint of ankle at the lateral malleolus. Patient reports she has not taken any medications for the symptoms. Reports history of ankle sprain as well.. 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 - Social history:: Smoking status: Patient denies any tobacco usage or history of. Patient/guardian denies using alcohol. ROS: 11:57 Constitutional: as per hpi ec2 Exam: 11:57 Constitutional: GEN: NAD Head: atraumatic Eyes: EOMI Ears: External ears are ec2 normal. CV: regular rate LUNGS: no respiratory distress ABD: non-distended SKIN: no evidence of rashes MSK: TTP to the lateral malleolus, no obvious deformity, intact distal neurovascular status. NEURO: moves all extremities equally Vital Signs: 11:52 BP 131 / 85; Pulse 58; Resp 18; Temp 98.2(TE); Pulse Ox 100% on R/A; Weight 61.23 kg; ld1 Height 5 ft. 2 in. ; Pain 9/10; 11:52 Body Mass Index 24.69 (61.23 kg, 157.48 cm) ld1 11:52 Pain Scale: Adult ld1 MDM: 11:53 Patient medically screened. ec2 11:57 Data reviewed: vital signs. ED course: Patient arrives today for evaluation of a right ec2 ankle injury. Examination remarkable for MSK findings as above. Obtain radiograph of the right ankle. Evaluate for fracture, suspect sprain.. 13:09 ED course: Ankle x-ray with no bony fracture. Will discharge home. Return precaution ec2 given.. 10/03 12:23 Order name: Ankle Right 3 View; Complete Time: 13:09 EDMS 10/03 11:56 Order name: Anil Wrap; Complete Time: 12:20 ec2 Administered Medications: 12:20 Drug: Ketorolac IM 30 mg IM once Route: IM; Site: right gluteus; kd3 13:23 Follow up: Response: No adverse reaction; Pain is decreased kd3 12:20 CANCELLED (Physician Discretion): [id number] mg PO once kd3 Disposition Summary: 10/04/23 13:09 Discharge Ordered Notes: Location: Home ec2 Condition: Stable ec2 Diagnosis - Sprain of ankle ec2 Followup: ec2 - With: Private Physician - When: - Reason: Recheck today's complaints Discharge Instructions: - Discharge Summary Sheet ec2 - Ankle Sprain, [id number] ec2 Forms: - Medication Reconciliation Form ec2 - Thank You Letter ec2 - Antibiotic Education ec2 - Prescription Opioid Use ec2 - Patient Portal Instructions ec2 - Leadership Thank You Letter ec2 Prescriptions: - methocarbamol 500 mg Oral tablet - take 2 tablets ORAL route 4 times per day; 20 tablet; Refills: 0, Product ec2 Selection Permitted Signatures: Dispatcher [employer] Sherry Tate RN RN ld1 Tiffany Gonzales RN RN kd3 Bob Sethi MD MD ec2 Corrections: (The following items were deleted from the chart) 12: 11:56 Acetaminophen PO 1000 mg PO once ordered. ec2 kd3 12:23 11:52 Ankle Left 3 View+RAD.RAD.BRZ ordered. EDMS EDMS
[2023-10-04 13:56] VITALS: BP 131/85; TEMP 98.2; O2SAT 100
== END ==
LOC: ER 11:44
DX: S93.401A Sprain of unspecified ligament of right ankle, initial encounter (principal); Z88.0 Allergy status to penicillin; Z88.1 Allergy status to other antibiotic agents